=== PATIENT | male | born 1970 | race Caucasian/White ===

== ENCOUNTER → 2023-11-25 15:20 | Outpatient (REF) | payer BC, SELFPAY | LOC: HWRAD 15:20 | PROVIDERS: ATTENDING PHYSICIAN Nurse Practitioner Family | DX: I73.9 Peripheral vascular disease, unspecified (principal) | CPT/HCPCS: 72100 ==

== ENCOUNTER → 2024-03-02 10:25 | Outpatient (REF) | payer BC, SELFPAY | LOC: HWRAD 10:25 | PROVIDERS: ATTENDING PHYSICIAN Nuclear Medicine Nuclear Cardiology; FAMILY PHYSICIAN Nurse Practitioner Family | DX: Q23.1 Congenital insufficiency of aortic valve (principal); I77.810 Thoracic aortic ectasia | CPT/HCPCS: 71275; Q9967 ==

== ENCOUNTER → 2024-05-07 09:00 | Outpatient (REF) | payer BC, SELFPAY | LOC: HWRAD 09:00 | PROVIDERS: ATTENDING PHYSICIAN Surgery Vascular Surgery; FAMILY PHYSICIAN Nurse Practitioner Family | DX: I73.9 Peripheral vascular disease, unspecified (principal) | CPT/HCPCS: 75635; Q9967 ==

== ENCOUNTER → 2024-08-20 08:14 | Outpatient (REF) | payer BC, SELFPAY | LOC: HWRCS 08:14 | PROVIDERS: ATTENDING PHYSICIAN Nuclear Medicine Nuclear Cardiology; FAMILY PHYSICIAN Nurse Practitioner Family | DX: Q23.1 Congenital insufficiency of aortic valve (principal) | CPT/HCPCS: 93306 ==

== ENCOUNTER 2024-09-08 19:44 | Inpatient (IN) | payer BC, SELFPAY ==
[2024-09-08] VITALS (26 sets, daily range): BP systolic 83–177; BP diastolic 56–115; BMI 23.8
[2024-09-08 13:50] LABS: % Basophils 0.5 % (0-2); % Eosinophils 0.5 % (0-6); % Immature Granulocytes 0.3 % (0-0.5); % Lymphocytes 19.1 % (20.5-51.1); % Monocytes 8.4 % (1.7-9.3); % Neutrophils 71.2 % (42.2-75.2); Absolute Basophils 0.1 10^3/uL (0-0.2); Absolute Eosinophils 0.1 10^3/uL (0-0.7); Absolute Lymphocytes 2.1 10^3/uL (1.2-3.4); Absolute Monocytes 0.9 10^3/uL (0.1-0.6); Absolute Neutrophils 7.8 10^3/uL (1.4-6.5); Hematocrit 42.3 % (39.0-52.0); Hemoglobin 14.4 g/dL (13.0-18.0); Mean Corpuscular Hgb 29.3 pg (27.0-31.0); Mean Platelet Volume 8.5 fL (7.4-10.4); Nucleated Red Blood Cells % 0 % (-); Platelet Count 276 10^3/uL (130-400); Red Blood Cell Count 4.92 10^6/uL (4.70-6.10); Red Cell Dist. Width 12.4 % (11.5-14.5)
[2024-09-08 14:03] LABS: ALT (SGPT) 25 U/L (0-50); AST (SGOT) 21 U/L (17-59); Albumin 4.3 g/dl (3.5-5.0); Alkaline Phosphatase 57 U/L (38-126); Blood Urea Nitrogen 15 mg/dl (9-20); Carbon Dioxide 28 mmol/L (22-30); Chloride 101 mmol/L (98-107); Glucose 114 mg/dl (70-99); Potassium 4.1 mmol/L (3.5-5.1); Sodium 137 mmol/L (135-145); Total Bilirubin 0.6 mg/dl (0.2-1.3); Total Protein 6.7 g/dl (6.3-8.2); eGFR > 60.00
[2024-09-08 14:13] LABS: Troponin I 0.012 ng/ml
--- NOTE | 2024-09-08 15:06 | ED.GENMED ---
History of Present Illness
General
Chief Complaint: Chest Pain
Source: patient
Time Seen by Provider: 09/08/24 14:54
History of Present Illness
History of Present Illness:
This patient is a 53-year-old male presents emergency department with a gradual onset of jaw discomfort on the left side associated with feeling slightly diaphoretic, lightheaded, and a 'throbbing' across his inferior scapular area bilaterally.
This started around 9:30 PM while enjoying dessert and has been constant since then. It was a initially rated as a 7 out of 10 now 3 out of 10. He had difficulty sleeping due to the discomfort. He denies associated chest pain, vomiting, neck
pain, abdominal pain. He did have slight nausea initially but no longer. He does not feel dyspneic but he feels that the pain is worse when he takes a deep breath and holds it. Patient has a history of an aortic ascending aneurysm most recently
echocardiogram performed earlier this month and he was told he will need a CTA for further evaluation. He also has a history of a bicuspid aortic valve. No known history of CAD.
Past History
Past History
ED Past Medical History: Other (Bicuspid aortic valve, hypertension, hyperlipidemia, ascending aortic aneurysm, peripheral vascular disease)
Social History
Tobacco: Former smoker
Alcohol: None
Drug: None
Personal: Single
Living: alone
Phy Exam
Physical Exam
Physical Exam:
GENERAL: Alert , in no apparent distress
EYE: pupils equal and reactive
NECK: Supple, no significant adenopathy.
ENT: o/p clr, mmm.
CARDIAC: Regular rate and rhythm, soft systolic murmur noted.
LUNGS: Clear breath sounds bilaterally, no acute respiratory distress, no wheezes/rales/rhonchi
ABDOMEN: Soft, without focal tenderness, no r/g, no cvat
NEUROLOGICAL: Alert and oriented, no focal neuro deficits
SKIN: Warm and dry, skin intact.
MUSCULOSKELETAL: No edema, well perfused.
PSYCH: Normal and appropriate interaction.
Scores
Heart Score for Chest Pain Patients
STEMI patient?: Not applicable
Course
Orders/Labs/Results
Orders:
Orders
09/08/24 13:04
Electrocardiogram (*1) Urgent
Reason for Study: Chest Pain
09/08/24 13:19
EKG- Treatment ONCE
09/08/24 13:41
Complete Blood Count/With Diff Urgent
Comprehensive Metabolic Panel Urgent
Glycohemoglobin (HgbA1c) Urgent
Lhkeh-Zvea-Tghggnj Urgent
Troponin I Urgent
09/08/24 15:06
CT Chest Angio W/wo Iv Contras Urgent
Comment:
Reason For Exam: hx ascen aort aneurysm, now with back pain
09/08/24 17:52
Esmolol 2500 mg/250 ml [Brevibloc 2500 mg] 2,500 mg in 250 ml IV NOW
Initial dose in mcg/kg/min, then titrate:: 50
Titrate to keep:: HR 50 - 60 bpm
Titrate to keep other:: then SBP 90-110 mmHg
Titrate by mcg/kg/min:: 25-50 mcg/kg/min
Frequency of titrations (minutes):: 5 minutes
Maximum dose in mcg/kg/min:: 300
Begin to taper infusion when:: Do Not Taper
Additional Taper Instructions:: do not taper to off without separate provider order
Additional Instructions:: if HR at goal and SBP above goal at max dose of esmolol:
Additional Instructions:: initiate nicardipine, DO NOT STOP ESMOLOL INFUSION.
Additional Instructions:: Contact provider if: HR < 45 bpm or if HR > 70 bpm on max dose esmolol.
Esmolol [Brevibloc] 40 mg IV NOW STA
09/08/24 18:00
Nicardipine 40 mg/200 ml [Cardene] 40 mg in 200 ml IV PER PROTOCOL
Initial dose in mg/hr, then titrate:: 5
Titrate to keep:: Other
Titrate to keep other:: SBP 90-110 mmHg
Titrate by mg/hr:: 2.5 mg/hr
Frequency of titrations (minutes):: every 5-15 minutes
Maximum dose in mg/hr:: 15
Begin to taper infusion when:: Remained at goal for 2hrs
Taper by mg/hr:: 2.5 mg/hr
Frequency of taper (minutes) if patient maintains goal:: every 15-30 minutes
Taper to off?: Yes
If infusion off & no longer maintaining goal:: Contact Provider
09/08/24 18:01
Morphine Sulfate 4 mg IV NOW STA
09/08/24 18:20
Type+Screen Stat
09/08/24 18:21
* Blood Bank Products Routine
Blood Bank Products: *Packed RBC Leuko(PRBC's)
Quantity: 4
Transfuse Today: Hold for OR
Is product needed for scheduled surgery?: Yes
Expected Surgery Date: TODAY
Reason: Other
Other reason: cardiothoracic surgery
* Blood Bank Products Routine
Blood Bank Products: *Plt Single Donor Leuko
Quantity: 4
Transfuse Today: Hold for OR
Is product needed for scheduled surgery?: Yes
Expected Surgery Date: TODAY
Reason: Other
Other reason: Cardiothoracic surgery
Magnesium Oxide 500 mg PO ONCE ONE
Metoprolol [Lopressor] 25 mg PO ONCE ONE
Mupirocin [Bactroban 2% Ointment] See Dose Instructions NASAL ONCE ONE
Pantoprazole [Protonix] 40 mg PO ONCE ONE
Activity As Directed
Activity Level: As Tolerated
Blood Pressure Bilateral Upper Extremities As Directed
Instructions:: If not already done, obtain and record bilateral upper extremity BP
Notify physician/PA/REVIEW ASSISTANT:: notify cardiac surgery PA, REVIEW ASSISTANT, or MD of a 20 mmHg or greater difference
Blood Pressure LEFT Upper Extremity ONCE
Blood Pressure RIGHT Upper Extremity ONCE
Notify MD As Directed
Notify physician if: Contact physician if patient has received any of the following agents within the previous
5 days:
Warfarin (Coumadin) Clopidogrel (Plavix)
Dabigatran (Pradaxa) Ticagrelor (Brillinta)
Rivaroxiban (Xarelto) Prasugrel (Effient)
Apixaban (Eliquis) Cilostazol (Pletal)
Enoxaparin (Lovenox) Pentoxifylline (Trental)
Edoxaban (Savaysa) Dipyridamole/Aspirin (Aggrenox)
Notify MD As Directed
Notify physician if: patient received or is scheduled/ordered to receive within 24 hours prior to surgery any:
- angiotension converting enzyme ([place]) inhibitors
- angiotension receptor blockers (ARB)
including combination products containing one of these agents.
OR/Surgery Prep As Directed
Type of Prep: shower or bathe patient with 4% CHG night before surgery.
Comment: DOS: cleanse pt with 2% CHG wipes. Complete clip/prep for scheduled surgery
Patient Education As Directed
Type: [facility]
Comment: pre-operative teaching. Give patient/family [facility] education material
Patient scheduled for CT Surgery As Directed
Type of surgery: AVR and Aortic replacement
Date of scheduled surgery: 09/08/24
Discontinue Heparin drip if ordered: freight caller to OR
Weight As Directed
Frequency: Once
Comment: record patient's height and weight
09/08/24 18:22
Intraoperative SHAKIRA Routine
Reason for Exam: cardiac surgery
09/08/24 18:38
ABO2 Stat
BBK Wristband Number:
Associate notified that ABO2 has been ordered: [id number]
Date: 09/08/24
Time: 18:35
Housekeeper/Custodian/Laundry Worker ID: [id number]
09/08/24 18:39
CT Abd/pelvis Angio W/wo Iv Stat
Comment:
Reason For Exam: aortic dissection
09/08/24 18:41
Admit Patient As Directed
Co-Sign Provider:
Level of Care: Inpatient admission
Assign to:: CVICU
Physician / Group: [facility]
Diagnosis: aortic dissection
Reason for Hospitalization: type A aortic dissection
Expected length of stay greater than two midnights?: Yes
ELOS- Estimated Length of Stay in days: 7
I certify the patient meets the requirements for IP care: Yes
09/08/24 18:42
VTE Contraindication Routine
VTE Mechanical Device Contraindication: Surgical Contraindication
Pharmocologic Contraindication: Medical Contraindication
PRN Pain Medication Management As Directed
May give lesser potent ordered pain med per pt: Yes
preference::
Protocol:: Medication orders for pain may be administered in a
manner that supports deferring to patient preference
when the pt is:
- Requesting an ordered lesser potent pain medication.
Least to most potent pain medications are defined
as: acetaminophen < NSAID < tramadol < opioids
(morphine, oxycodone, hydromorphone).
- Requesting a lesser dose of the same medication IF
ORDERED.
- Requesting a less intrusive route of administration
if both routes are prescribed by the provider (PO <
IV).
09/08/24 19:12
Fentanyl Citrate/Pf [Sublimaze] 250 mcg .ROUTE .STK-MED ONE
Fentanyl Citrate/Pf [Sublimaze] 250 mcg .ROUTE .STK-MED ONE
Fentanyl Citrate/Pf [Sublimaze] 250 mcg .ROUTE .STK-MED ONE
Fentanyl Citrate/Pf [Sublimaze] 250 mcg .ROUTE .STK-MED ONE
Lidocaine 2% Mpf [Xylocaine Mpf 2%] 100 mg .ROUTE .STK-MED ONE
Midazolam HCl [Versed] 5 mg .ROUTE .STK-MED ONE
Propofol [Diprivan] 20 ml .ROUTE .STK-MED
Rocuronium [place] [Rocuronium] 100 mg .ROUTE .STK-MED ONE
09/08/24 19:13
Dexamethasone Sod Phosphate [Decadron] 20 mg .ROUTE .STK-MED ONE
Ketamine 5 ml .ROUTE .STK-MED
09/08/24 19:19
Admit/Transfer Patient As Directed
Co-Sign Provider:
Level of Care: Inpatient admission
Assign to:: CVICU
Physician / Group: [facility]
Diagnosis: Type A Dissection
Reason for Hospitalization: Type A Dissection
Expected length of stay greater than two midnights?: Yes
ELOS- Estimated Length of Stay in days: 5
I certify the patient meets the requirements for IP care: Yes
09/08/24 19:20
PRN Pain Medication Management As Directed
May give lesser potent ordered pain med per pt: Yes
preference::
Protocol:: Medication orders for pain may be administered in a
manner that supports deferring to patient preference
when the pt is:
- Requesting an ordered lesser potent pain medication.
Least to most potent pain medications are defined
as: acetaminophen < NSAID < tramadol < opioids
(morphine, oxycodone, hydromorphone).
- Requesting a lesser dose of the same medication IF
ORDERED.
- Requesting a less intrusive route of administration
if both routes are prescribed by the provider (PO <
IV).
09/08/24 19:22
Add On- LAB Stat
Tests Added?: hemoglobin A1c and hepatic panel
09/08/24 19:26
NORepinephrine 4 MG/250 ML [Levophed] 4 mg in 250 ml .ROUTE .STK-MED
09/08/24 19:27
Nitroglycerin [Tridil] 500 mcg .ROUTE .STK-MED ONE
09/08/24 19:28
Insulin Human Regular [Novolin R] 100 units .ROUTE .STK-MED ONE
09/08/24 20:00
CeFAZolin 2 GRAM [Ancef] 2 grams in 10 ml IV Q1H
09/09/24 00:09
0.9% Sodium Chloride 500 ml [Nss] 500 ml IV CORDIS
Acetaminophen [Tylenol/Feverall] 650 mg RECTAL Q4HPRN PRN
Acetaminophen [Tylenol] 1,000 mg PO TID@0600,1400,2200
Acetaminophen [Tylenol] 650 mg PO Q4HPRN PRN
Albuterol Nebs [Ventolin Nebules] 2.5 mg INH R Q4HPRN PRN
Albuterol [ProAIR HFA INHALER] 2 puff INH R Q4HPRN PRN
Amiodarone [Pacerone] 200 mg PO TID
Bisacodyl [Dulcolax] 10 mg RECTAL DAILYPRN PRN
Calcium CHLORIDE [Calcium Chloride 10% Syringe] 1,000 mg 0.9% Sodium Chloride 50 ml [Nss] 40 ml Syringe [Syringe-Pump] 0 ml IV PRN
Cyclobenzaprine HCl [Flexeril] 5 mg PO Q8HPRN PRN
DOBUTamine 500 MG/D5W 250 ML [Dobutrex 500 mg] 500 mg in 250 ml IV PER PROTOCOL
Initial dose in mcg/kg/min, then titrate:: 2.5
Currently infusing. Continue current dose and titrate:: Yes
Titrate to keep:: Other
Titrate to keep other:: cardiac index >/= 2.0
Titrate by mcg/kg/min:: 0.5 - 1 mcg/kg/minute
Frequency of titrations (minutes):: 15
Additional Titration Instructions:: continue current dose or initiate at 2.5 mcg/kg/minute
Maximum dose in mcg/kg/min:: 20
Begin to taper infusion when:: Remained at goal for 4hrs
Taper by mcg/kg/min:: 1 mcg/kg/minute
Frequency of taper (minutes) if patient maintains goal:: 30
Taper to off?: Yes
Dexmedetomidine 400 Mcg/100 ml [Precedex] 400 mcg in 100 ml IV PER PROTOCOL
Indication:: CT Surgery Postop
Goal:: RASS 0 to -2
Maximum dose in mcg/kg/hr:: 1.5
Continue currently infusing dose and titrate:: Yes
Titration Instructions:: Titrate by 0.1-0.2 mcg/kg/hr every 30 minutes to keep RASS 0 to -2.
Taper Instructions:: Begin taper if RASS < 0. Taper by 0.1-0.2 mcg/kg/hr every 30 minutes.
Taper Instructions:: May turn off when dose is </= 0.5 mcg/kg/hr.
Dextrose 50%-Water [Dextrose 50% Syringe] 12.5 grams IV [id number] PRN
Docusate W/Senna [Senokot-S] 1 tablet PO Q12
Gabapentin [Neurontin] 100 mg PO TID
HYDROmorphone [Dilaudid] 0.25 mg IV Q3HPRN PRN
HYDROmorphone [Dilaudid] 0.5 mg IV Q3HPRN PRN
KCl 20 Meq/50 ml [KCl] 20 meq in 50 ml IV PRN
Lactated Ringers [Lr] 250 ml IV [id number] PRN
Magnesium Hydroxide [Milk of Magnesia] 30 ml PO BIDPRN PRN
Magnesium Sulfate 2 Gram/50 ml [Magnesium Sulfate] 2 gram in 50 ml IV PRN
Mupirocin [Bactroban 2% Ointment] See Dose Instructions NASAL Q12
NORepinephrine 4 MG/250 ML [Levophed] 4 mg in 250 ml IV PER PROTOCOL
Initial dose in mcg/min, then titrate:: 2
Currently infusing. Continue current dose and titrate:: Yes
Titrate to keep:: Other
Titrate to keep other:: MAP greater than 65 mmHg
Titrate by mcg/min:: 1-2 mcg/min
Frequency of titrations (minutes):: 5
Additional Titration Instructions:: continue current dose or initiate at 2 mcg/min
Maximum dose in ICU in mcg/min:: 30
Maximum dose in IMU in mcg/min:: 8
Maximum dose in IVU in mcg/min:: 4
Begin to taper infusion when:: Remained at goal for 4hrs
Taper by mcg/min:: 1-2 mcg/min
Frequency of taper (minutes) if patient maintains goal:: 30
Taper to off?: Yes
Nicardipine 40 mg/200 ml [Cardene] 40 mg in 200 ml IV PER PROTOCOL
Initial dose in mg/hr, then titrate:: 2.5
Currently infusing. Continue current dose and titrate:: Yes
Titrate to keep:: Other
Titrate to keep other:: MAP 70-90 mmHg
Titrate by mg/hr:: 2.5 mg/hr
Frequency of titrations (minutes):: 5-15 minutes
Additional Titration Instructions:: continue current dose or initiate at 2.5 mg/hr
Maximum dose in mg/hr:: 15
Begin to taper infusion when:: Remained at goal for 2hrs
Taper by mg/hr:: 2.5 mg/hr
Frequency of taper (minutes) if patient maintains goal:: 15-30 minutes
Taper to off?: Yes
Ondansetron Injectable [Zofran] 4 mg IV Q8HPRN PRN
Oxycodone [Roxicodone] 2.5 mg PO Q4HPRN PRN
Oxycodone [Roxicodone] 5 mg PO Q4HPRN PRN
Pharmacy Request to Place See Dose Instructions PO ONCE ONE
Reg Insulin 100 Units/100 ml [Novolin R Insulin Infusion] 100 units in 100 ml IV PER PROTOCOL
09/09/24 00:09
Electrocardiogram (*1) Urgent
Reason for Study: Other
Other Reason for Exam: Post OP CardioThoracic surgery
Comment: 1 hour Post Op
CARDIOLOGY CONSULT Urgent
Consulting Provider: Vincenzo Charles
Was physician already notified: Yes
Reason for consult: postop Ct surgery
Vamp Maker Consult Urgent
Consulting Provider: Govind Barnes
Was physician already notified: Yes
Reason for consult: postop Ct surgery
Activity As Directed
Activity Level: Bedrest
Comment: bedrest postop, advance as tolerated
Advance Diet as Tolerated As Directed
Goal Diet: Cholesterol Lowering
Comment: NPO 4hrs post extubation. 1st meal only diet jello, diet kathrin acacia, broth
Iris Hugger As Directed
Patient's goal temperature:: 98 F
Additional Instructions:: Temperature and skin assessment per unit protocol
CVICU Nursing Chest PT As Directed
Frequency: q4 hours while awake
Number of Days: 2
Comment: Post Extubation x 48 hr, then prn if patient is unable to clear secretions
Chest Tube As Directed
Location: Pleural
To suction: Yes
Suction to __ centimeters of water: -20
May ambulate with suction off?: Yes
Chest Tube As Directed
Location: mediastinal
To suction: Yes
Suction to __ centimeters of water: -20
May ambulate with suction off?: Yes
Cordis Introducer Sheath As Directed
ECG as needed As Directed
ECG as needed for:: Rhythm Change
Epicardial Pacemaker As Directed
Mode:: Ventricular Demand
Rate (bpm):: 50
Output/Stimulation Threshold:: set output to 2 to 3 times stimulation threshold
Comment:: Refer to guidelines. Epicardial Wires Care per guidelines.
INT (Intravenous Needle Therapy) As Directed
Comment: POD#1 must maintain one peripheral IV access
Intake/ Output As Directed
Frequency: Per unit guidelines
Call for Urine Output less than: 0.5 mL /kg/hour
Notify MD As Directed
Notify physician if: -For temperatures greater than 102�F, more than 48 hours post-op.
-Systolic Arterial Pressure (SBP) less than 90 or greater than 130.
-If pH is less than 7.35 L or greater than 7.[address] Non Medication Order As Directed
Physician Order: H&H and Platelet Count 4 hours post op
Above order entered?: Yes
Nursing to Place Non Medication Order As Directed
Physician Order: stat ABG and continuous pulse ox if signs and symptoms of insufficiency and pulse ox less
than 90% post extubation
Above order entered?: Yes
Pneumatic Compression Sleeves As Directed
Type: Knee high
Suction Patient As Directed
Route of Suctioning: Nasotracheal Tube
Comment: nasotracheal suction PRN not coughing well after IS and chest PT
Vital Signs As Directed
Frequency: Per unit guidelines
Call for:: temp > 102 F; if greater than 48 hours post op
Additional Instructions:: temp less than or equal to 102 F; less than 48 hours post-op - no cultures
Weight As Directed
Frequency: Daily
Type of Scale: Standing Scale
Wound Care As Directed
Location of Wound: sternum
Treatment of Wound: -If Dermabond used, leave incision open to air
CR Chest Portable - 1 View Urgent
Comment:
Reason For Exam: post-op cardiothoracic surgery
Reason Study Needs to be Portable: Patient Unstable
Extubate Patient [RCUNC] Routine
Special Instructions: - Place patient on continuous positive air pressure (CPAP) with PS 5, when patient
exhibits signs of assisting ventilator. Proceed per guidelines.
- Extubate patient from CPAP if partial pressure of oxygen (PO2) greater than 80mmHg,
partial pressure of carbon dioxide (PCO2) less than 45mmHg, respiratory rate less than
25, heart rate less than 110, potential of hydrogen (pH) 7.35-7.45, oxygen saturation
greater than or equal to 92% and hemodynamically stable unless otherwise indicated by
provider.
O2 Therapy [RESP] Routine
Titrate/Wean O2 to maintain O2 sat greater than (%): 90
Special Instructions: - place on humidified nasal cannula 6 liters/min after extubation.
- place on 50% face tent in addition to nasal cannula if needed to keep Pulse Ox greater
than or equal to 90%.
- wean nasal cannula by 2 liters/min every 2 hours until on room air.
- maintain Pulse Ox greater than 90%.
Pulse Ox/cont/shift [RESP] Urgent
Quantity: 1
Special Instructions: Obtain pulse oximetry for signs and symptoms of insufficiency. If less than 90% notify
provider.
Rx Incentive Spirometry [RESP] Routine
Frequency: q1h while awake
Comment: every 1 to 2 hours while awake
Ventilator Initial Settings [RESP] Urgent
FIO2: 60
PEEP: 5
Pressure Support: 5
Comment: tidal volume 10 mL/kg, rate 8-10, see special instructions below
Special Instructions: - Wean FiO2 to 40% to maintain pulse ox >/ =90%
- ABG Urgent 30 minutes after each ventilator change (excluding fractional concentration
inspired oxygen (FiO2) changes)
DX Deep Vein Thrombosis Video Routine
09/09/24 00:54
Arterial Blood Gas, Lytes, iCa Urgent
%Oxygen/Room Air: vent
Comment: draw 1 hour post op
Blood Urea Nitrogen Urgent
Comment: draw 1 hour post op
Creatinine Urgent
Comment: draw 1 hour post op
Glucose Urgent
Comment: draw 1 hour post op
H&H Urgent
Comment: draw 1 hour post op
Magnesium Urgent
Comment: draw 1 hour post op
Mixed Venous O2 Saturation Urgent
%Oxygen/Room Air: vent
Comment: draw 1 hour post op
PTT Urgent
Platelet Count Urgent
Comment: draw 1 hour post op
Prothrombin Time Urgent
Comment: draw 1 hour post op
09/09/24 01:26
Aspirin 300 mg RECTAL ONCE ONE
09/09/24 02:03
Aspirin Chewable [Low Strength Aspirin] 81 mg PO ONCE ONE
09/09/24 05:00
Electrocardiogram (*1) Urgent
Reason for Study: Other
Other Reason for Exam: Post OP CardioThoracic surgery
Comment: Post-Op Day 1
09/09/24 05:53
Basic Metabolic Panel IN AM
Complete Blood Count/No Diff IN AM
Magnesium IN AM
09/09/24 06:00
CARDIAC REHAB CONSULT Routine
Co-Sign Provider:
Type of Cardiac Rehab Referral: Both IP & OP
Diagnosis: AVR w/ zooplastic tissue
Date of Diagnosis/Surgery: 09/08
Referring Provider: Bubba Davenport
Comment: Transfer OOB to chair on first day post-op, if vital signs
Comment: w/in parameters & pt not receiving vasopressin or epinepherine
Activity As Directed
Activity Level: Out of Bed- Chair
With Assistance
As Tolerated
Out of Bed-Early Mobility
Comment: POD #1 OOB to chair if VS w/in parameters & not on vasopressin or epi
CR Chest Portable - 1 View IN AM@0600
Comment:
Reason For Exam: post-op cardiothoracic surgery
Reason Study Needs to be Portable: Patient Unstable
09/09/24 07:30
Insulin Aspart Pen [Novolog Flexpen] See Protocol SC AC
09/09/24 08:00
Aspirin 300 mg RECTAL DAILYPRN PRN
Aspirin Chewable [Low Strength Aspirin] 81 mg PO DAILY
CeFAZolin 1 GRAM [Ancef] 1 gram in 5 ml IV Q8H
Lidocaine [Lidocaine 4% Patch] 1 patch TOPICAL DAILY
Apply Lidocaine patch(s) to:: back
Magnesium Oxide 500 mg PO BID
Metoprolol [Lopressor] 12.5 mg PO Q12
Pantoprazole [Protonix] 40 mg PO DAILY
Rosuvastatin Calcium [Crestor] 10 mg PO DAILY
09/09/24 14:00
Ferric Gluconate [Ferrlecit] 125 mg 0.9% Sodium Chloride 100 ml [Nss] 100 ml IV DAILY@1400
09/09/24 20:00
Remove Patch [Remove Lidocaine Patch] 1 patch REMOVE DAILY@2000
09/10/24 03:39
Basic Metabolic Panel IN AM
Complete Blood Count/No Diff IN AM
Magnesium IN AM
09/10/24 06:00
CR Chest Portable - 1 View IN AM@0600
Comment:
Reason For Exam: post-op cardiothoracic surgery
Reason Study Needs to be Portable: Patient Unstable
09/11/24 06:00
Basic Metabolic Panel IN AM
Complete Blood Count/No Diff IN AM
Magnesium IN AM
CR Chest Portable - 1 View IN AM@0600
Comment:
Reason For Exam: post-op cardiothoracic surgery
Reason Study Needs to be Portable: Patient Unstable
09/12/24 06:00
Basic Metabolic Panel IN AM
Complete Blood Count/No Diff IN AM
Magnesium IN AM
CR Chest - 2 Views Routine
Comment: in am POD#4
Reason For Exam: post-op cardiothoracic surgery
Abnormal Lab Results
09/08/24 09/08/24
13:41 18:20
WBC 11.0 H 10^3/uL
(4.8-10.8)
Absolute Neuts (auto) 7.8 H 10^3/uL
(1.4-6.5)
Absolute Monos (auto) 0.9 H 10^3/uL
(0.1-0.6)
Lymphocytes % 19.1 L %
(20.5-51.1)
Glucose 114 H mg/dl
(70-99)
Hemoglobin A1c 6.1 H %
(4.0-5.6)
Crossmatch IS Only See Detail
09/08/24 13:41
09/08/24 13:41
Vital Signs
Initial and Last Documented VS:
Initial Vital Signs
Temp Pulse Resp BP Pulse Ox
98.2 F 78 16 140/86 99
09/08/24 13:29 09/08/24 13:29 09/08/24 13:29 09/08/24 13:29 09/08/24 13:29
Last Documented Vital Signs
Temp Pulse Resp BP Pulse Ox
98.7 F 82 16 101/66 90
09/10/24 07:55 09/10/24 08:08 09/10/24 07:55 09/10/24 08:08 09/10/24 07:55
*Critical Care Note
Total Time (30-74mins, 75-104mins- exclusive of procedures): 45
Update Note
Update Note:
Patient presents to the Emergency Department with ___back pain, lightheadedness
Number and Complexity of Problems Addressed at the Encounter
� Chronic conditions affecting care:
� Acute Exacerbation and/or Progression of Chronic Illness:
� Differential Diagnosis includes: but not limited to acs, msk pain, dissection, etc etc
Amount and/or Complexity of Data to be Reviewed and Analyzed
� I performed an independent evaluation of and my interpretation is:
EKG:
CT:Report via [facility] text from Dr. Mcleod CTA consistent with type a aortic dissection. Nurse immediately notified, esmolol drip ordered, will contact CT surgery now 1.Ascending aortic aneurysm measuring 5.4 cm, previously 5.2
cm, with a new [place] type a dissection of the ascending thoracic aorta measuring 4.3 cm in length with associated periaortic stranding. This does not extend into the aortic root.
2. No other significant abnormality identified in the chest.
Xrays:
Laboratory Studies:first troponin wnl
Other:
� Review of other/old records reveals: echo 08/20 aneurysm measures 4.8-5.5 cm
� Clinical information was obtained by an independent historian:bedside friend
� Prescriptions/Medications Considered but not given:
� Further testing considered but not performed:
Risk of Complications and/or Morbidity or Mortality of Patient Management
� Social determinants of health affecting care:
� Discussion with other providers (PCP, Hospitalists, Consultants, etc):
� Escalation of care including admission/observation vs risk of discharge considered:As soon as tt recieved, pt started on esmolol gtt, updated on diagnosis and plan. Call/text to Dr Davenport, who will be in to see pt now. Bp
coming down, sbp now 130's, will continue to titrate up gtt.
Communication with open hearth laborer, she is ordering stat cta a/p. Other orders placed. Sbp gradually lowering, rn instructed to increase gtt.
ED Attending Note
-
Portions of this chart may have been created with voice recognition software.� Occasional wrong word or��sound alike� substitutions may have occurred due to the inherent limitations of voice recognition software.
Discharge Plan
Departure
Patient Disposition: OR
Date of Disposition: 09/08/24
Time of Disposition: 18:45
Admit to doctor: shila
Presentation/result/management discussed w/ accepting MD/DO: shila
Condition: Critical
Discharge Problem:
Aortic aneurysm with dissection
Interventions
Interventions:
*Risk Screen - Suicide Last Done: 09/08/24 14:37
*General Assessment Last Done: 09/08/24 14:55
*Neglect/Abuse Screening Last Done: 09/08/24 14:37
ED- Fall Risk Assessment Last Done: 09/08/24 19:52
*ED COVID-19 Vaccine History Last Done: 09/08/24 14:37
*Nursing Disposition Last Done: 09/08/24 19:52
ED- Cardiac Assessment Last Done: 09/08/24 14:55
ED-Peripheral Vascular Assessment Last Done: 09/08/24 14:37
ED-Skin Assessment Last Done: 09/08/24 14:37
Discharge Date and Time
Discharge Date/Time: 09/08/24 19:53
[2024-09-08] MEDS: MORPHINE SULFATE 4 MG IV (18:07)
[2024-09-08] MEDS: BREVIBLOC 40 MG IV (18:07)
[2024-09-08] MEDS: BREVIBLOC 2500 MG 250 IV (18:10)
[2024-09-08] MEDS: CARDENE 200 IV (18:41)
--- NOTE | 2024-09-08 19:15 | W.PN.UPDATE ---
Update Note
Progress Note Update
Called by Dr. Kirkland to ED for Mr. Jacinto for sudden chest pain while eating dinner. Known ascending aortic aneurysm of 5.5cm with bicuspid aortic valve morphology. On my personal review of his CTA Chest, he has a focal dissection along the greater
curve at the STJ extending distally and proximally, does not appear to be involving the root, no extension into the arch or desc thoracic aorta. The midascending on my measurement is 5.7cm at it's maximal dimension, the distal ascending necks down
to 3.6cm and appears normal in architecture. He has a normal arch and head vessel branching. His TTE from 08/20 demonstrates a bicuspid aortic valve, normal function, and at least moderate eccentric AI. No cath in our system, minimal calcification
on CT. We discussed his pathology and natural history of a Type A dissection. We reviewed the risks and benefits of surgery, and understands and is willing to proceed. Plan will be Emergent Type A repair, aortic root replacement with coronary
reimplantation, and likely ascending aortic replacement. Given the normal size of his distal ascending and arch, I do not believe we will need to perform circulatory arrest if I can clamp high enough. With his bicuspid valve with moderate AI, I will
have a low threshold to replace the valve. We discussed both biological and mechanical valves and he is leaning toward the biological prosthesis. Full consultation note to follow. Consent obtained and signed. Denies family history, tells me he
typically has good blood pressure control and heart rates in the 60s.
--- NOTE | 2024-09-08 19:33 | HPS.HSE ---
Family Physician
-
Family Physician: LEONARDA Bennett
Chief Complaint
-
Type A Aortic Dissection
History of Present Illness
53 y/o male with PMHx of HTN, HLD, a known Ao Aneurysm and Bicuspid aortic valve followed by Dr. Collins presents to [facility] with complaints of sudden dull achy chest pain while eating dinner. He then presented to where a CTA of the
chest was performed and he was found to have a focal dissection along the greater curve at the STJ extending distally and proximally, does not appear to be involving the root, no extension into the arch or desc thoracic aorta. Dr. Davenport reviewed the
images personally and it was decided that the patient will go to the OR emergently for a Type A Aortic repair. Consent was obtained and pre-operative orders were placed.
Medical History
Past Medical History
Past Medical History: Reports HTN, Hypercholesterolemia, NIDDM, Valvular Disease (Bicuspid Valve) and Other
Additional Past Medical History:
GI polyps
Pulmonary nodules
Diverticulosis
Hemorrhoids
Incomplete RBBB
alcoholism (drank 1.75 ETOH every 2.5 days for almost 10 years, stopped 'cold turkey' approximately 2014
Degenerative disc disease-cortisone injection
Migraines
Past Surgical History: Reports Other
Additional Past Surgical History:
B/L inguinal Hernia repairs in 2021
Social History
Tobacco: Former Smoker (quit 5-10 years ago))
Alcohol: Occasional
Drug: None
Personal: Single
Living: Alone
Employment: Employed
Family History
Family History: Unable to Obtain
Allergies / Home Medications
Allergies reflects when Allergies were last updated in [employer].
Home Medications with original date entered in [employer]
Allergy/Medication List:
Home Medications
�Medication �Instructions �Recorded
amlodipine 5 mg tablet 5 mg PO DAILY 05/31/22
aspirin 81 mg tablet,delayed 81 mg PO DAILY 09/08/24
release
aspirin 81 mg tablet,delayed 162 mg PO DAILYPRN PRN chest pain 09/08/24
release
coenzyme Q10 100 mg capsule 100 mg PO DAILY 09/08/24
(CoQ-10)
rosuvastatin 10 mg tablet 10 mg PO DAILY 09/08/24
Allergies
Allergy/AdvReac Type Severity Reaction Status Date / Time
lisinopril Allergy cough Verified 09/08/24 19:46
Review of Systems
-
History Source: Patient
A 12 point ROS was completed and negative except as noted: Yes
Cardiac: Reports Chest Pain
Physical Exam
Vital Signs
Vital Signs
Temp Pulse Resp BP Pulse Ox
98.2 F 66 0 95/66 100
09/08/24 13:29 09/08/24 19:15 09/08/24 19:15 09/08/24 19:05 09/08/24 19:05
Physical Exam
General: Well Developed and Well Nourished
HEENT: NormoCephalic
Respiratory: Clear
Cardiac: S1/S2 and Murmur
Breast: Deferred by me
GI: Soft and Non Tender
Rectal: Deferred by Provider
Genito-urinary: Deferred by me
Musculoskeletal: No Cyanosis and No Edema
Skin: Warm and Dry
Neuro: AO x 3
Hematologic/Lymphatic: No Lymphadenopathy
Psych: Calm and Intact Judgment/Insight
Laboratory Results
-
09/08/24 13:41
09/08/24 13:41
Laboratory Results
Total Bilirubin 0.6 mg/dl (0.2-1.3) 09/08/24 13:41
AST 21 U/L (17-59) 09/08/24 13:41
ALT 25 U/L (0-50) 09/08/24 13:41
Alkaline Phosphatase 57 U/L (38-126) 09/08/24 13:41
Troponin I 0.012 ng/ml 09/08/24 13:41
Troponin I Cancelled 09/08/24 13:41
Data Reviewed
-
Critical Care Time (in minutes): 40
Impression/Plan
-
IMPRESSION:
53 y/o male with pmhx listed above presents to with chest pain and found to have a Type A Aortic dissection. He was taken emergently to the CVOR with Dr. Davenport for repair.
PLAN:
#Type A Aortic dissection
- stat type and screen and stat CTA of A/P
- Pre and post operative orders placed
- will be admitted to the CVICU post-operatively
- Will consult cardiology
#HLD
- resume statin when appropriate
#HTN
- Will resume antihypertensives when appropriate
[2024-09-08 19:54] LABS: Direct Bilirubin 0.1 mg/dl (0.0-0.4)
[2024-09-08 20:50] LABS: ACT+ - POC 112 Seconds (82-134)
[2024-09-08 21:08] LABS: Urine Albumin Negative (Neg - Trace); Urine Bilirubin Negative (Negative); Urine Character Clear (Clear); Urine Color Yellow; Urine Glucose Negative (Negative); Urine Ketone Negative (Negative); Urine Leukocyte Trace (Negative); Urine Nitrite Negative (Negative); Urine Occult Blood Negative (Negative); Urine Specific Gravity 1.005 (<1.030); Urine Urobilinogen Negative (Neg - 1+)
[2024-09-08 21:22] LABS: ACT+ - POC 617 Seconds (82-134)
[2024-09-08 21:29] LABS: Urine Bacteria Few (Negative); Urine Red Blood Cell 0-2 /HPF (0-2); Urine Squamous Cell 0-2 /LPF (Few); Urine White Cell 0-2 /HPF (0-5)
[2024-09-08 21:50] LABS: B.E. - POC -0.6 mmol/L; Glucose - POC 110 mg/dl (70-99); HCO3 - POC 24 mmol/L (21-28); Hematocrit - POC 36 % PCV (42-52); Hemodilution- POC No; Hemoglobin Calculated - POC 12.3; Ionized Calcium - POC 1.15 mmol/L (1.15-1.33); O2 Saturation %Calculated-POC 99.8 % (94-98); PCO2 - POC 39 mmHg (35-48); PO2 - POC 244 mmHg (83-108); POC Comment PRE; Potassium - POC 3.9 mmol/L (3.5-5.1); Sodium - POC 139 mmol/L (136-145); Specimen Type - POC Arterial
[2024-09-08 22:03] LABS: ACT+ - POC 587 Seconds (82-134)
[2024-09-08 22:26] LABS: B.E. - POC -0.1 mmol/L; Glucose - POC 124 mg/dl (70-99); HCO3 - POC 24 mmol/L (21-28); Hematocrit - POC 31 % PCV (42-52); Hemodilution- POC Yes; Hemoglobin Calculated - POC 10.5; Ionized Calcium - POC 0.98 mmol/L (1.15-1.33); O2 Saturation %Calculated-POC 99.9 % (94-98); PCO2 - POC 37 mmHg (35-48); PO2 - POC 336 mmHg (83-108); POC Comment CPB; Potassium - POC 5.1 mmol/L (3.5-5.1); Sodium - POC 136 mmol/L (136-145); Specimen Type - POC Arterial; pH - POC 7.42 (7.35-7.45)
[2024-09-08 22:41] LABS: ACT+ - POC 714 Seconds (82-134)
[2024-09-08 23:02] LABS: B.E. - POC -1.2 mmol/L; Glucose - POC 178 mg/dl (70-99); HCO3 - POC 23 mmol/L (21-28); Hematocrit - POC 40 % PCV (42-52); Hemodilution- POC Yes; Hemoglobin Calculated - POC 13.6; Ionized Calcium - POC 1.05 mmol/L (1.15-1.33); O2 Saturation %Calculated-POC 99.8 % (94-98); PCO2 - POC 37 mmHg (35-48); PO2 - POC 226 mmHg (83-108); POC Comment CPB; Potassium - POC 4.6 mmol/L (3.5-5.1); Sodium - POC 137 mmol/L (136-145); Specimen Type - POC Arterial
[2024-09-08 23:16] LABS: ACT+ - POC 717 Seconds (82-134)
[2024-09-08 23:35] LABS: B.E. - POC -3.6 mmol/L; Glucose - POC 198 mg/dl (70-99); HCO3 - POC 22 mmol/L (21-28); Hematocrit - POC 39 % PCV (42-52); Hemodilution- POC Yes; Hemoglobin Calculated - POC 13.2; Ionized Calcium - POC 1.09 mmol/L (1.15-1.33); O2 Saturation %Calculated-POC 99.9 % (94-98); PCO2 - POC 40 mmHg (35-48); PO2 - POC 293 mmHg (83-108); POC Comment CPB; Potassium - POC 3.9 mmol/L (3.5-5.1); Sodium - POC 137 mmol/L (136-145); Specimen Type - POC Arterial; pH - POC 7.35 (7.35-7.45)
[2024-09-08 23:52] LABS: ACT+ - POC 120 Seconds (82-134)
[2024-09-08 23:54] LABS: B.E. - POC 0.4 mmol/L; Glucose - POC 158 mg/dl (70-99); HCO3 - POC 26 mmol/L (21-28); Hematocrit - POC 34 % PCV (42-52); Hemodilution- POC Yes; Hemoglobin Calculated - POC 11.6; Ionized Calcium - POC 1.37 mmol/L (1.15-1.33); O2 Saturation %Calculated-POC 99.8 % (94-98); PCO2 - POC 45 mmHg (35-48); PO2 - POC 227 mmHg (83-108); POC Comment POST; Potassium - POC 3.1 mmol/L (3.5-5.1); Sodium - POC 142 mmol/L (136-145); Specimen Type - POC Arterial; pH - POC 7.37 (7.35-7.45)
[2024-09-09] VITALS (24 sets, daily range): BP systolic 81–135; BP diastolic 57–73; BMI 24.0
--- NOTE | 2024-09-09 00:29 | W.PN.CT.SURG ---
CT Surgery Operative Note
-
CARDIAC SURGERY OPERATIVE REPORT
Preoperative Diagnosis: Acute type A Dissection
Postoperative Diagnosis: Same, with severe aortic valve insufficiency and bicuspid valve morphology
Procedure(s) Performed:
1. Standard sternotomy with mid arch cannulation using Seldinger technique and right atrial cannulation
2. Aortic root replacement�biological Bentall [27 mm valved conduit]
3. Reimplantation of left and right coronary ostia
4. Left atrial appendage exclusion [35 mm clip]
5. Ascending aortic replacement to the level of the proximal arch where the caliber normalized
6. Transesophageal echocardiography
7. Placement of temporary atrial ventricular pacing wires
Date of Surgery: 09/09/2024
Comorbidities:
1. Known bicuspid aortic valve morphology, type 0, with severe aortic valve insufficiency secondary to leaflet prolapse
2. Ascending aortic aneurysm measuring 5.7 cm
3. 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
4. Acute Norbert type a aortic dissection
5. Hypertension
6. Hyperlipidemia
7. Peripheral vascular disease
8. Prediabetic
Attending Surgeon: Bubba Davenport MD, MS
Assistants: Dayanara Vazquez PA-C (present and necessary to miller first, retraction, suction, exposure, suture management, and wound closure under my direction)
Anesthesiology: Terrell Franklin MD
Scrub and Circulating RNs: Janet Navas RN, Miki Huston RN
Business Affairs Manager: Marina Sanchez CCP
Anesthesia: GETA
EBL: per perfusion records
Products: 2 plts
CPB Time: 126 minutes
Aortic Cross Clamp Time: 105 minutes
Indication(s) for Procedures: This is a 53-year-old male who had sudden acute onset of chest pain while eating dinner last night. Presented to the ED underwent a CTA of the chest finding and aortic root dissection with concomitant aortic root and
ascending aortic aneurysm. He also has known bicuspid valve morphology. Given that he has an acute type a dissection, he is brought emergently to the operating room for surgical intervention.
Aortic Valve Description: Type 0 bicuspid aortic valve, fenestrations at the commissures, prolapse of the leaflets resulting in eccentric jet directed towards the anterior leaflet the mitral valve
Findings: His left ventricular ejection fraction preoperatively was 65% with no regional wall motion abnormalities following surgery he was hyperdynamic with an EF of approximately 65 to 70% with no new regional wall motion abnormalities. Of note
he had severe aortic valve insufficiency on preoperative SHAKIRA with an eccentric jet that was directed towards the anterior leaflet the mitral valve. He had a type 0 bicuspid aortic valve morphology with fenestrations along his aortic valve. He also
had a concomitant root aneurysm measuring 4.7 cm and a mid ascending aortic measurement at maximal diameter of 5.7 cm there was a noticeable tear at the greater curvature of the proximal ascending aorta. Upon entry into his pericardium there is
evidence of hemopericardium and bruising of his ascending aorta as well as the surrounding structures. Because his aorta transition to a normal caliber with normal-appearing tissue at the distal segment of his aorta/proximal arch I was able to
clamp high enough at the base of the innominate artery that I did not feel circulatory arrest was necessary. He underwent a biological Bentall with a valved conduit with the placement of 15 pledgeted 2 Ethibond sutures from LVOT through annulus
through sewing cuff of the conduit. These were secured with core knots. Both left and right coronary ostia were mobilized into buttons which were then sewn back onto the neosinuses with 5-0 Prolene. Bovine pericardium was used as a gasket around
the coronary buttons. The ascending aortic tissue was then resected until there was a normal caliber and normal tissue quality. The straight tube portion of the valved conduit graft was then beveled accordingly and the distal anastomotic suture
line was created with 4-0 Prolene in a running fashion using bovine pericardium as a gasket on the [place] aortic tissue. His left atrial appendage was also verified to be free of any thrombus or debris preoperatively, given the extent of the
surgery and his risk for atrial fibrillation requiring anticoagulation, his left atrial appendage was also excluded with a 35 mm clip. This was verified to be totally occlusive at the conclusion of the case. The ligament Km was divided.
Coming off cardiopulmonary bypass he had 2 fibrillatory events that required defibrillation likely from air entrainment into the right coronary ostia. Following defibrillation he maintained sinus rhythm with isoelectric ST segments. He did not
require any inotropic support and was hyperdynamic coming off of cardiopulmonary bypass, cardiac index was 2.7. He was given 2 packs of platelets. Did not require any pacing and was sinus rhythm in the 60s. There was no aortic valve insufficiency
and the mean gradient across the new biological valve was 8 mmHg while he was hyperdynamic.
Specimen(s): Ascending and aortic root aortic tissue and aortic valve leaflets.
Prosthesis:
1. 35 mm left atrial appendage clip, serial #[id number]
2. Bovine pericardium
3. 27 mm [place] KONECT Resilia valved conduit, serial #[id number]
Description of Procedure: The patient was taken to the operating room. Their identity and procedure to be performed were verified and they were positioned supine on the operating table. Induction via general anesthesia with endotracheal intubation
was performed and central venous access and arterial monitoring were inserted. A preoperative transesophageal echocardiogram was performed to assess cardiac function and valvular function. The patient was then prepped and draped from chin to feet in
a sterile fashion. A preoperative time-out was performed with all members of the team present. A midline chest incision was performed along with median sternotomy. The innominate vein was isolated and encircled with a vessel loop. Next the
innominate artery was encircled and double looped fashion using a vessel loop followed by the left common carotid. The pericardium was then opened which revealed obvious hemopericardium. Full heparinization was given (a total of 40,000 units). We
created a pericardial well. The pericardial reflection on the ascending aorta was then taken down using gentle pressure pulling the aorta downward towards the patient's feet, additional dissection towards the mid and distal arch was performed. The
aortic cannulation site was chosen where it was soft, pliable, and free of calcium at the mid arch parallel to the left common carotid. Cannulation was performed with an EOPA cannula under Seldinger technique and SHAKIRA guidance with verification of
the wire in the distal descending thoracic aorta. The tract was serially dilated up to 18 Serbian followed by placement of a 20 Serbian cannula approximately 5 cm deep into the descending thoracic aorta. And a triple-stage venous cannula through the
right atrial appendage. The arterial cannula line had an appropriate bounce and correlating pressures with test dosing. The pulmonary artery was away from the aorta to facilitate a clamp site and aortotomy. The distal ascending
aorta/proximal arch was then circumferentially dissected divide the ligament posteriorly and freeing the RPA off of the posterior aorta. A retrograde coronary sinus catheter was placed for the RA with SHAKIRA and manual guidance. The ACT was confirmed
to be over 400 and retrograde autologous priming was performed before commencing cardiopulmonary bypass. A left ventricular vent was placed at the right superior pulmonary vein and secured. Additional dissection towards the arch was then performed
while on cardiopulmonary bypass. The aortic cross-clamp was placed after decreasing the flow on the bypass and mean arterial pressure w pulling the aorta downward. The aortic clamp was placed at the base of the innominate artery in a beveled
fashion towards the lesser curvature of the arch. A total of 1.0L initial dose of antegrade Del-Nido cardioplegia solution was given and planned for re-dosing every 75 minutes as necessary followed by 200 cc of retrograde cardioplegia given the
aortic valve insufficiency. There was rapid electro-mechanical arrest of the heart at 600 cc of cardioplegia antegrade and we were able to maintain aortic pressure with manual pulsation of the root. The left ventricle was observed for distention on
echocardiogram and manual palpation. Cold slush was placed into a sponge and topically on the RV while we systemically cooled to 34 degrees centigrade.
Carbon dioxide was used to flood the field. The mid ascending aorta at the widest portion was then transected using an 11 blade followed by Metzenbaum scissors. The distal ascending aorta was then folded and placed the side for later resection.
The location of both left and right coronary vessels were visualized in the root. The heart was then medialized and the left atrial appendage was clipped while the heart was fully arrested. I then cut down towards the commissures leaving
approximately 1.5 cm of tissue. The root was then mobilized more the pulmonary artery off of the left main coronary button. The leaflets were excised and sent for pathological assessment. The left main and right coronary buttons were
mobilized. 4-0 pledgeted sutures were used to retract the buttons. A total of 15 pledgeted 2-0 ethibond annular sutures were placed [id number] (inverted) circumferentially. The annulus was sized to a 27 mm bioprosthesis these were brought
through the sewing cuff of the valved conduit which as then parachuted into place. A Cor-Knot device was used to secure the annular sutures. An eye cautery was used to first create a small opening to perform left main coronary button anastomosis.
The button was then trimmed accordingly and using 5-0 Prolene with a bovine pericardial gasket, the button was reimplanted toward the Mahendra-left sinus. Volume was then used to fill the heart to estimate the location for the right coronary button
anastomosis. In a similar fashion an eye cautery was used to create a small opening in the mahendra-right sinus and anastomosis was created with 5-0 Prolene running fashion using bovine pericardium as a gasket. PrevaLeak was used to coat the buttons for
additional reinforcement. The ascending aorta was then resected up to the base of the innominate artery at the cross clamp at the pre-determined marked site. The valved conduit was trimmed accordingly. The distal anastomosis was performed with a
running 4-0 Prolene in a single layer using bovine pericardium as a gasket.
De-airing maneuvers were performed and temporary bipolar ventricular pacing wires were placed on the base of the right ventricle and temporary atrial pacing wires at the SVC/Atrial junction. The patient was placed in a Trendelenburg position and
flows on bypass were lowered. The aortic cross clamp was removed and flows were slowly brought back up. The suture lines appeared hemostatic. Several reinforcement sutures were placed using pledgeted 4-0 Prolene. Transesophageal echocardiography
revealed no AI and appropriate prosthetic function. The retrograde coronary sinus catheter was removed and tied down. Once de-airing was satisfactory, the left ventricular vent was removed. After verifying acceptable parameters, we initiated weaning
from cardiopulmonary bypass. Once we were off cardiopulmonary bypass, the venous cannula was clamped and removed. A test dose of protamine was administered and the patient was monitored for any adverse reaction before resuming protamine. Once half
of the protamine dose was delivered, pump suckers were turned off and the systolic blood pressure was lowered for aortic decannulation. The aortic cannula was removed and pursestrings were tied down. All cannulation sites were oversewn with a 4-0
prolene. The suture lines were inspected and hemostasis was confirmed. Hemostatic agents were placed around all suture lines. Mediastinal hemostasis was obtained. Two 24Fr Anuj drains were placed within the pericardium. The pericardium overlying
the graft was loosely closed with vicryl suture. The sternum was approximated with 4 #7 single and 3 #8 double stainless steel wires. Fascia was approximated with #1 vicryl suture. The subcutaneous, dermis and epidermis were closed in layers in a
running fashion. The skin wound was cleansed and dressed.
All instrument, sponge, and needle counts were confirmed to be correct x 2 at the end of the operation. The patient was transferred to the cardiac intensive care unit in critical but stable condition.
I, Dr. Bubba Davenport, was present, scrubbed for, and performed all critical elements of this procedure.
Bubba Davenport MD, MS
Cardiothoracic Surgeon
[facility] [address]
This dictation was created using the SeeOn dictation system. Please excuse any grammatical, typographical, or 'sound alike' errors
[2024-09-09 00:58] LABS: Glucose - Point of Care 116 mg/dl (70-99)
--- NOTE | 2024-09-09 01:00 | PTCARENOTE ---
received pt from CVOR @ ~0045 into room 2264. pt intubated and sedated. #8 ETT intact to right lip @ 26cm. vent set to SIMV 14/500/5/5/40%. POX 97%. B/L breath sounds present. CT x2 intact to -20cm wall suction, no air leak present. Precedex gtt
infusing @ 0.5mcg. pt awakens to verbal stimuli for brief periods. NSR on monitor, HR 60s. epicardial AV wires intact. pt hypotensive w SBP in 80s. Dr Davenport @ bedside, he adjusted the epicardial wires to AAI 68, mA 10. BP improved. B/L radial and DP
pulses palpable. heart tones clear. CI 2.35. RIJ cordis + swan intact w KVOs infusing. PAPs ~20s/10s. CVP ~14. carter catheter intact, draining CYU. core temp 94.8. sagar hugger applied. absent bowel sounds. Insulin gtt infusing per glycemic protocol.
all surgical sites stable. see worklist for full assessment, VS, and interventions. ordered labs drawn and sent. EKG and CXR done. turning/repositioning pt Q2H and as needed.
--- NOTE | 2024-09-09 01:04 | W.PN.UPDATE ---
Update Note
Progress Note Update
53 year old male seen immediately post op in CVICU for an aortic root replacement (biological Bentall 27 mm valved conduit), ASAEL exclusion (35 mm clip) for an acute type A dissection 09/08->09/[address] Davenport. Noted hemopericardium at the start of
case. 2 fib events coming off CBP s/p defibrillation.
Access: 7 Fr cordis with PA cath, #14 IV L hand, bilateral #20 in AC
CBP 126 min/Ao cross clamp 105 min
intake: 2300, 2 U Plt
output 500 urine
EBL pending
Post SHAKIRA LVEF 65-70%, no RWMA, mean gradient 8 over new valve
CI 2.7 coming off bypass.
arrives on 2 mcg levophed, Precedex 0.5 mcg, insulin 1 unit.
AC 14/500/60/5, peak 19. airway not difficult
A+V wires , arrived on DDD with pacer cabrera appearing over QRS, switched to VVI then AAI
CTs: 2M no Pl @ -20
[place] with clear/yellow urine
Plan:
Neuro: cont Precedex, multimodal pain mgt
CV: levo/Cardene for SBP goal 90-110, currently paced AAI @ 68 with improvement in BP with levo off, CI/CO 2.35/4.72 off levo. will remove PA cath in AM if targets achieved. can DC R art line.
Pulm: reduce FiO2 to 40%, AC-> PSV to goal extubate
GI: NPO
Renal: follow UOP, FFP for volume if needed
Endo: insulin drip, targets per institutional policy
heme: repeat coags, FFP/cryo to correct if needed
[2024-09-09 01:09] LABS: B.E. 2.3 mmol/L; HCO3 27.3 mmol/L (21-28); Ionized Calcium 1.19 mMOL/L (1.15-1.33); O2 Saturation % 98.3 % (94-98); PCO2 43 mmHg (35-48); PO2 104 mmHg (83-108); Potassium 2.8 mMOL/L (3.5-5.1); Sodium 138 mMOL/L (136-145); pH 7.41 (7.35-7.45)
[2024-09-09 01:12] LABS: Mixed Venous O2 Saturation 73.8 %
[2024-09-09 01:24] LABS: Blood Urea Nitrogen 14 mg/dl (9-20); Estimated Creatinine Clearance 102 ml/min; Glucose 115 mg/dl (70-99); Magnesium 3.3 mg/dl (1.6-2.3)
[2024-09-09 01:26] LABS: Fibrinogen 232 MG/DL (199-459)
[2024-09-09 01:27] LABS: INR 1.35; PT 17.2 Sec (11.4-14.6)
[2024-09-09 01:28] LABS: APTT 40.4 Sec (23.4-35.0)
[2024-09-09] MEDS: ANCEF 10 IV ×2 (02:01)
[2024-09-09 02:09] LABS: Glucose - Point of Care 122 mg/dl (70-99)
[2024-09-09 02:51] LABS: Glucose - Point of Care 124 mg/dl (70-99)
[2024-09-09 02:59] LABS: Hematocrit 32.3 % (39.0-52.0); Hemoglobin 11.4 g/dL (13.0-18.0); Platelet Count 192 10^3/uL (130-400)
[2024-09-09] MEDS: SENOKOT-S PO (03:12)
[2024-09-09] MEDS: TYLENOL PO ×3 (03:12→13:23)
[2024-09-09] MEDS: NEURONTIN PO (03:12)
[2024-09-09] MEDS: BACTROBAN 2% OINTMENT 1 APPLIC NASAL ×3 (03:14→20:29)
[2024-09-09 03:52] LABS: Glucose - Point of Care 106 mg/dl (70-99)
[2024-09-09] MEDS: KCL 50 IV ×3 (03:52→06:51)
[2024-09-09] MEDS: NSS 500 IV (03:52)
[2024-09-09 04:52] LABS: Glucose - Point of Care 113 mg/dl (70-99)
[2024-09-09] MEDS: ASPIRIN 300 MG RECTAL (04:52)
[2024-09-09] MEDS: ALBUMIN 5% 250 IV ×2 (04:52→06:50)
--- NOTE | 2024-09-09 05:30 | PTCARENOTE ---
pt placed on SBT by respiratory therapist. POX 99%
[2024-09-09 05:53] LABS: Glucose - Point of Care 121 mg/dl (70-99)
[2024-09-09 06:02] LABS: B.E. 1.4 mmol/L; HCO3 27.2 mmol/L (21-28); Ionized Calcium 1.19 mMOL/L (1.15-1.33); PCO2 47 mmHg (35-48); PO2 156 mmHg (83-108); pH 7.37 (7.35-7.45)
--- NOTE | 2024-09-09 06:23 | RESPNOTE ---
pt extubated to 6L n/c @ 06:15, vitals stable
[2024-09-09 06:27] LABS: Blood Urea Nitrogen 16 mg/dl (9-20); Carbon Dioxide 28 mmol/L (22-30); Chloride 106 mmol/L (98-107); Estimated Creatinine Clearance 92 ml/min; Glucose 118 mg/dl (70-99); Magnesium 2.5 mg/dl (1.6-2.3); Potassium 3.7 mmol/L (3.5-5.1); Sodium 140 mmol/L (135-145); eGFR > 60.00
[2024-09-09 06:29] LABS: Hematocrit 32.2 % (39.0-52.0); Hemoglobin 11.2 g/dL (13.0-18.0); Mean Corp Hgb Conc. 34.8 g/dL (33.0-37.0); Mean Corpuscular Hgb 29.9 pg (27.0-31.0); Mean Corpuscular Volume 85.9 fL (80.0-94.0); Mean Platelet Volume 8.8 fL (7.4-10.4); Platelet Count 236 10^3/uL (130-400); Red Blood Cell Count 3.75 10^6/uL (4.70-6.10); Red Cell Dist. Width 12.4 % (11.5-14.5); White Blood Cell Count 16.1 10^3/uL (4.8-10.8)
[2024-09-09] MEDS: DILAUDID 0.5 MG IV (06:47)
--- NOTE | 2024-09-09 06:55 | PTCARENOTE ---
pt extubated @ 0615 to 6LNC without incident. swan and right radial art line d/c'd per CT PA.
--- NOTE | 2024-09-09 07:40 | CON.INTV ---
Consultation
Consultation Request
Date/Time Consultation Requested: 09/09
Date/Time Consultation Performed: 09/09
Reason for Consultation: Critical care
Medical History
-
History of Present Illness:
History obtained from the chart, hospital records and outpatient records. Patient currently waking up, just extubated few hours prior. Patient is a 53-year-old male with known dilated aortic ascending aneurysm, bicuspid aortic valve followed by
cardiology who presents with jaw discomfort, diaphoresis, lightheadedness while eating dinner. This worsened, making it difficult to sleep, rated 10/10. He brought himself into [facility] where upon arrival afebrile, pulse 78, breathing at
16, blood pressure 140/86, 99%. CT angiogram was obtained which showed type a aortic dissection. Patient was started on esmolol drip. CT surgery was consulted. Patient underwent sternotomy with aortic root replacement with biological valve
09/09/2024. We are asked to help from a critical care standpoint
Of note, patient was extubated earlier this morning, extubated to 6 L. Presently is comfortable appearing, mild splinting on exam but following commands, appears comfortable
.
PMH: Hypertension, hyperlipidemia, incomplete right bundle branch block. History of ascending aortic aneurysm, bicuspid aortic valve, DJD, history of avascular necrosis of scaphoid. Bilateral hernia with repair in 2021. History of peripheral
vascular disease with claudication, follows vascular surgery
Past Medical History
Past Medical History: None (See above)
Past Surgical History: None (See above)
Social History
Tobacco: Former Smoker (Quit 2015)
Alcohol: Former (Quit cold turkey 2014)
Drug: None
Personal:
Living: With Family
Family History
Family History: Other (Father from COVID 2019. 2 siblings healthy. 3 daughters healthy)
Allergies / Home Medications
Allergies
Allergy/AdvReac Type Severity Reaction Status Date / Time
lisinopril Allergy cough Verified 09/08/24 19:46
Home Medications
�Medication �Instructions �Recorded �Confirmed �Last Taken �Type
amlodipine 5 mg tablet 5 mg PO DAILY 02/09/22 09/08/24 09/08/24 History
aspirin 81 mg tablet,delayed 81 mg PO DAILY 09/08/24 09/08/24 09/08/24 History
release
aspirin 81 mg tablet,delayed 162 mg PO DAILYPRN PRN chest pain 09/08/24 09/08/24 09/07/24 History
release
coenzyme Q10 100 mg capsule 100 mg PO DAILY 09/08/24 09/08/24 09/08/24 History
(CoQ-10)
rosuvastatin 10 mg tablet 10 mg PO DAILY 09/08/24 09/08/24 09/08/24 History
Review of Systems
-
Unable to Obtain full review of systems at this time due to: Acuity
All other systems: Negative unless noted
Vitals / Labs / Diagnostic Testing
Vital Signs
Temp Pulse Resp BP Pulse Ox
98 F 68 14 94/60 97
09/09/24 07:00 09/09/24 07:00 09/09/24 07:00 09/09/24 06:45 09/09/24 07:00
Lab Data
09/09/24 05:53
09/09/24 05:53
Laboratory Results
09/09/24 09/09/24
00:54 05:53
PT 17.2 H
INR 1.35
APTT 40.4 H
pH 7.41 7.37
pCO2 43 47
pO2 104 156 H
HCO3 27.3 27.2
O2 Delivery Level
Diagnostic Testing:
Physical Exam
-
HEENT: Normocephalic, Anicteric and Other (IJ, A-line)
Cardiovascular: S1/S2, Regular Rhythm, Murmur (n), Rub (n), Peripheral Edema (n) and Other (Chest tube with no significant drainage)
Respiratory: Wheeze (n), Rales (n), Rhonchi (n), Non-Labored Respirations and Other (Mild splinting)
GI: Soft, Non Distended and Non Tender
Neurology: Awake, Alert and No Motor Deficits (Moves extremities)
Skin: Good Color
General: Comfortable
Assessment
-
53-year-old male with history of bicuspid arctic valve, 5.2 cm ascending aortic aneurysm, presents with acute onset of chest pain, lightheadedness, nausea found to have type a aortic dissection with severe aortic valve insufficiency. Patient
underwent sternotomy with aortic root replacement with biological Bentall 09/09/2024.
S/p aortic root replacement with biological Bentall valved conduit for type a dissection 09/08-
Hemopericardium at initiation of case
Extubated 09/09 in a.m.
Acute chest pain onset around 9:30 PM 09/08
Incomplete right bundle branch block
History of bicuspid aortic valve with severe aortic insufficiency
History of thoracic Ascending aortic aneurysm
Hypertension/hyperlipidemia
Peripheral arterial disease, followed by vascular surgery
Former alcoholism, quit 2014
Former smoker, quit 2015
Multiple pulmonary nodules, largest 6 mm
Questionably worse compared to 2020
Plan/recommendations
At this time, patient remains critically ill but stable
Chest tube output minimal
Postoperative SHAKIRA with no wall motion abnormalities. Cardiac index 2.7 postprocedure
Initially required norepinephrine, insulin, Precedex, extubated this morning
AV wires in place
Chest x-ray unremarkable
Moving forward
Continue with excellent care per CT surgery
Follow hemoglobin, blood sugars, transfuse per CT surgery
Chest tube output minimal
Hemopericardium noted at initiation of case
Pain control
Incentive spirometry
Reviewed CT images. Multiple small nodules noted.
Would recommend repeat CT chest in February 2025 with pulmonary follow-up
Reviewed with critical care nursing
We will follow
TCCT 31 min
[2024-09-09] MEDS: DILAUDID 0.25 MG IV (08:00)
[2024-09-09] MEDS: LIDOCAINE 4% PATCH 1 PATCH TOPICAL (08:00)
[2024-09-09] MEDS: ANCEF 5 IV ×3 (08:00→23:40)
--- NOTE | 2024-09-09 08:00 | PTCARENOTE ---
resumed care of patient from previous RN. Resting in bed at time of assessment. daughter and friend at bedside. A paced at 68. AV wires. A on and set to AAI 68/10. POX 97%. 4L nc. IS 1000. lungs diminished and shallow. CT x2 intact to -20cm wall
suction, no air leak present. draining red. Juanjo on at 4mcg. weaned to 2 upon arrival and assessment. will wean to off as able. pulses palpable. trace gen edema. [place] draining tea colored urine. RIJ cordis intact w KVOs infusing. hypo bowel
sounds. poor appetite. Insulin gtt infusing per glycemic protocol. all surgical sites stable. will continue to monitor.
[2024-09-09] MEDS: NOVOLOG FLEXPEN SC (08:03)
[2024-09-09 08:08] LABS: Glucose - Point of Care 140 mg/dl (70-99)
[2024-09-09] MEDS: CRESTOR 10 MG PO (09:40)
[2024-09-09] MEDS: NEURONTIN 100 MG PO ×3 (09:53→22:21)
[2024-09-09] MEDS: MAGNESIUM OXIDE 500 MG PO ×2 (09:53→20:27)
[2024-09-09] MEDS: SENOKOT-S 1 TABLET PO ×2 (09:54→20:27)
[2024-09-09] MEDS: LOW STRENGTH ASPIRIN 81 MG PO (09:54)
[2024-09-09] MEDS: PROTONIX 40 MG PO (09:55)
[2024-09-09 10:04] LABS: Glucose - Point of Care 150 mg/dl (70-99)
--- NOTE | 2024-09-09 10:04 | PTOTSP ---
Clinical Swallow Evaluation
53M with admission for emergent type A dissection p/w a functional oropharyngeal swallow. No overt s/s of aspiration or penetration demonstrated this date. Unable to r/o silent aspiration at bedside, please re-consult if s/s of aspiration arise.
Recommend:
1. Regular textures (IDDSI 7), thin liquids (IDDSI 0)
2. Meds as tolerated
3. General aspiration precautions
4. Ensure top denture is in place for mastication of regular solid
5. SENIOR ASIC DESIGN ENGINEER service to s/o. Unable to r/o silent aspiration at bedside, please re-consult if s/s of aspiration arise.
[2024-09-09 10:41] LABS: Glycohemoglobin (HgbA1c) 6.1 % (4.0-5.6)
--- NOTE | 2024-09-09 11:12 | CON.CAR ---
Consultation
Consultation Request
Date/Time Consultation Requested: September 09, 2024
Date/Time Consultation Performed: September 09, 2024
Requesting Provider: CT surgery
Performing Provider: Melvin
Reason for Consultation: Status post aortic dissection repair
Medical History
-
Chief Complaint: Status post aortic dissection repair
History of Present Illness:
53-year-old male with history of bicuspid aorctic valve, 5.2 cm ascending aortic aneurysm, presents with acute onset of chest pain, lightheadedness, nausea found to have type a aortic dissection with severe aortic valve insufficiency. Patient
underwent sternotomy with aortic root replacement with biological Bentall 09/09/2024. Seen postoperatively after repair. He is currently atrial paced and feels overall well despite having recent surgery. He is extubated and has mediastinal tubes
in place.
Past medical history
s/p aortic root replacement with biological Bentall valved conduit for type a dissection 09/08-
Hemopericardium at initiation of case
Extubated 09/09 in a.m.
Acute chest pain onset around 9:30 PM 09/08
Incomplete right bundle branch block
History of bicuspid aortic valve with severe aortic insufficiency
History of thoracic Ascending aortic aneurysm
Hypertension/hyperlipidemia
Peripheral arterial disease, followed by vascular surgery
Former alcoholism, quit 2014
Former smoker, quit 2015
Multiple pulmonary nodules, largest 6 mm
Questionably worse compared to 2020
Past Medical History
Past Medical History: Valvular Disease
Past Surgical History: Cardiac
Social History
Tobacco: Former Smoker
Alcohol: None
Drug: None
Personal:
Living: With Family
Employment: Employed
Family History
Family History: Reviewed & Not Pertinent
Allergies / Home Medications
Allergy/AdvReac Type Severity Reaction Status Date / Time
lisinopril Allergy cough Verified 09/08/24 19:46
�Medication �Instructions �Recorded �Confirmed �Type
amlodipine 5 mg tablet 5 mg PO DAILY Blood Pressure 02/09/22 09/08/24 History
aspirin 81 mg tablet,delayed 81 mg PO DAILY Blood Clot 09/08/24 09/08/24 History
release Prevention/Tx
aspirin 81 mg tablet,delayed 162 mg PO DAILYPRN PRN chest pain 09/08/24 09/08/24 History
release
coenzyme Q10 100 mg capsule 100 mg PO DAILY Supplement 09/08/24 09/08/24 History
(CoQ-10)
rosuvastatin 10 mg tablet 10 mg PO DAILY High Cholesterol 09/08/24 09/08/24 History
Review of Systems
-
All other systems: Negative unless noted
Cardiac: No Symptoms
Abdomen/GI: No Symptoms
: No Symptoms
Physical Exam
Vital Signs
Temp Pulse Resp BP Pulse Ox
98 F 65 11 100/63 96
09/09/24 07:00 09/09/24 10:00 09/09/24 09:30 09/09/24 09:00 09/09/24 10:00
Lab Results
09/09/24 05:53
09/09/24 05:53
Troponin I 0.012 ng/ml 09/08/24 13:41
Troponin I Cancelled 09/08/24 13:41
Physical Exam
General: Well Developed and Well Nourished
HEENT: Normocephalic and Anicteric
Respiratory: Other (Diminished)
Cardiac: S1/S2 and Regular Rhythm (Atrially paced)
GI: Soft, Non Tender and Non Distended
Rectal: Deferred by Provider
Genito-urinary: Clear Urine
Musculoskeletal: No Clubbing and No Cyanosis
Skin: Warm and Dry
Neuro: Awake, Alert and Oriented
Hematologic/Lymphatic: No Lymphadenopathy
Psych: Calm
Impression / Plan
-
53-year-old male with history of bicuspid arctic valve, 5.2 cm ascending aortic aneurysm, presents with acute onset of chest pain, lightheadedness, nausea found to have type a aortic dissection with severe aortic valve insufficiency. Patient
underwent sternotomy with aortic root replacement with biological Bentall 09/09/2024.
Impression:
S/p aortic root replacement with biological Bentall valved conduit for type a dissection 09/08-
Hemopericardium at initiation of case
Extubated 09/09 in a.m.
Acute chest pain onset around 9:30 PM 09/08
Incomplete right bundle branch block
History of bicuspid aortic valve with severe aortic insufficiency
History of thoracic Ascending aortic aneurysm
Hypertension/hyperlipidemia
Peripheral arterial disease, followed by vascular surgery
Former alcoholism, quit 2014
Former smoker, quit 2015
Multiple pulmonary nodules, largest 6 mm
Questionably worse compared to 2020
Plan/recommendations
At this time, patient remains critically ill but stable
Chest tube output minimal
Postoperative SHAKIRA with no wall motion abnormalities. Cardiac index 2.7 postprocedure
Initially required norepinephrine, insulin, Precedex, extubated this morning and wean drips as able
Currently atrial paced. His underlying atrial rhythm was in the 50s I suspect he will not require permanent pacing
Continue with excellent care per CT surgery
Chest tube output minimal
Hemopericardium noted at initiation of case we will follow-up with echocardiogram this week
Pain control
Incentive spirometry
Will follow with you
Data Reviewed
-
EKG: Tracing Personally Visualized and interpreted
CT Scan: Report Reviewed by me
Labs: Labs Reviewed by me
Old Records: Reviewed
[2024-09-09 13:02] LABS: Glucose - Point of Care 129 mg/dl (70-99)
[2024-09-09] MEDS: ROXICODONE 5 MG PO ×3 (13:22→23:39)
[2024-09-09] MEDS: FERRLECIT 110 MG IV (14:29)
[2024-09-09] MEDS: NOVOLOG FLEXPEN 4 UNITS SC ×2 (14:57→16:23)
[2024-09-09 15:02] LABS: Glucose - Point of Care 126 mg/dl (70-99)
[2024-09-09 16:23] LABS: Glucose - Point of Care 133 mg/dl (70-99)
--- NOTE | 2024-09-09 16:40 | W.PN.ANS.POP ---
Anesthesia Post Operative
- Anesthesia Post Op Note
Vital Signs Stable-See Nursing Note: Yes
Airway Patent: Yes
Adequate Pain Control: Yes
Change in Mental Status: No
Current Postoperative Nausea & Vomiting: No
Anesthesia Complications: No
General Anesthetic Recall: No
Unplanned Admission: No
Post Op Hydration Adequate: Yes
[2024-09-09 17:50] LABS: Glucose - Point of Care 206 mg/dl (70-99)
[2024-09-09 19:11] LABS: Glucose - Point of Care 144 mg/dl (70-99)
--- NOTE | 2024-09-09 20:00 | PTCARENOTE ---
Assumed care of patient at 1900. Patient found OOB in chair at time of assessment with friend at bedside. Patient is AOx4, follows commands appropriately, moves all extremities. Lung sounds are diminished at the bases, saO2 92% on 2L via NC, CTx2:
Medsx2 to one atrium draining red sanguineous. Heart sounds are audible, SR, patient has normal palpable pulses and trace generalized anasarca. Patient has hypoactive BS throughout all four quadrants and is voiding clear yellow. There is a sternal
incision approx with surg adhesive ASHLEE. Patient has R IJ cordis receiving KVO and R/L AC PIV receiving insulin gtt. VSS. Call glass within reach.
[2024-09-09] MEDS: NOVOLIN R INSULIN INFUSION 100 IV (20:27)
[2024-09-09] MEDS: TYLENOL 1000 MG PO (22:21)
[2024-09-09 23:15] LABS: Glucose - Point of Care 117 mg/dl (70-99)
[2024-09-09 23:15] LABS: Glucose - Point of Care 91 mg/dl (70-99)
[2024-09-09 23:15] LABS: Glucose - Point of Care 90 mg/dl (70-99)
[2024-09-09] MEDS: NSS IV (23:49)
[2024-09-10] VITALS (33 sets, daily range): BP systolic 81–137; BP diastolic 59–95; PULSE 85; O2SAT 90–95; BMI 25.4
--- NOTE | 2024-09-10 00:22 | W.PN.CT ---
Today's Communication / Plan
-
-POD #1
-No acute overnight events
-Off levo since yesterday AM
-Currently NSR, Paced AAI rate 68 post op for hemodynamic stability now with intrinsic rate at 80, has A+V wires
-on 2 L NC, IS use reinforced
-2M CTs 130/290 out in 12/24 hrs
-UOP 425/1465 in 12/24 hrs, carter out
-multimodal pain mgt
-remains on insulin gtt
-continue ASA, IV iron, rosuvastatin, PPI. Amio and metoprolol 12.5 mg to start today
Assessment / Plan
-
Acute [place] type A Dissection s/p Aortic root replacement with biological Bentall 27 mm valved conduit, ASAEL exclusion with 35 mm clip, ascending aortic replacement with Dr. Davenport 09/08/24-> 09/09/24 POD #1
Post SHAKIRA LVEF 65%, no RWMA, no AV insufficiency with mean gradient 8 mmHg
Ascending aortic aneurysm
Bicuspid AV
Severe AI
HTN
HLD
PVD
Pre-DM
Incomplete RBBB
Former EtOH abuse
Former smoker
Acute hemopericardium
Acute coagulopathy s/p 2 U platelets
Acute hypoxic respiratory failure
Acute blood loss anemia
Acute post op pain
Subjective
Procedure
s/p Aortic root replacement with biological Bentall 27 mm valved conduit, ASAEL exclusion with 35 mm clip, ascending aortic replacement with Dr. Davenport 09/08/24-> 09/09/24
-
Date of Service: September 10, 2024
Objective Data
-
PT 17.2 Sec (11.4-14.6) H 09/09/24 00:54
INR 1.35 09/09/24 00:54
APTT 40.4 Sec (23.4-35.0) H 09/09/24 00:54
Vital Signs
Vital Signs
Temp Pulse Resp BP Pulse Ox
99.4 F 79 19 135/73 92
09/09/24 19:25 09/09/24 23:00 09/09/24 23:00 09/09/24 22:19 09/09/24 22:44
CT Intake/Output/Weight
09/09/24 09/09/24 09/10/24
06:59 18:59 06:59
Intake Total 494.3 / 521.6 131.1 / 202.9 71.8 / 202.9
Output Total 510 / 670 750 / 1295 545 / 1295
Balance -15.7 / -148.4 -618.9 / -1092.1 -473.2 / -1092.1
SaO2: 92
Physical Exam
-
General: Awake, Oriented and AOx3
Cardiovascular: Regular rate & rhythm, No Murmurs and No Rub
Respiratory: Clear and Equal
Sternum: Stable
Incision: Clean, Dry and Intact
Extremities: No Edema and No Erythema
Data Reviewed
-
Lab Results: Results Reviewed
Medications: Active Meds Reviewed
Chest X-Ray: Report Reviewed and Image Reviewed
ECG: Report Reviewed
[2024-09-10 00:24] LABS: Glucose - Point of Care 120 mg/dl (70-99)
[2024-09-10 01:15] LABS: Glucose - Point of Care 106 mg/dl (70-99)
--- NOTE | 2024-09-10 02:16 | PTCARENOTE ---
Patient reassessed. VSS. Remains in SR on the monitor. Given 5mg Oxyx1 for pain. Successful voidsx2 with clear yellow urine. Call glass within reach.
[2024-09-10 03:06] LABS: Glucose - Point of Care 73 mg/dl (70-99)
[2024-09-10 04:04] LABS: Hematocrit 30.7 % (39.0-52.0); Hemoglobin 10.5 g/dL (13.0-18.0); Mean Corp Hgb Conc. 34.2 g/dL (33.0-37.0); Mean Corpuscular Volume 87.7 fL (80.0-94.0); Platelet Count 181 10^3/uL (130-400); Red Cell Dist. Width 12.9 % (11.5-14.5); White Blood Cell Count 19.3 10^3/uL (4.8-10.8)
[2024-09-10 04:18] LABS: Glucose - Point of Care 93 mg/dl (70-99)
[2024-09-10 04:25] LABS: Blood Urea Nitrogen 15 mg/dl (9-20); Calcium 8.1 mg/dl (8.4-10.2); Carbon Dioxide 28 mmol/L (22-30); Chloride 100 mmol/L (98-107); Estimated Creatinine Clearance 92 ml/min; Glucose 79 mg/dl (70-99); Magnesium 2.5 mg/dl (1.6-2.3); Potassium 4.2 mmol/L (3.5-5.1); Sodium 135 mmol/L (135-145); eGFR > 60.00
[2024-09-10 05:21] LABS: Glucose - Point of Care 121 mg/dl (70-99)
[2024-09-10] MEDS: ROXICODONE 5 MG PO (05:24)
[2024-09-10] MEDS: TYLENOL 1000 MG PO ×3 (05:24→20:17)
[2024-09-10 06:17] LABS: Glucose - Point of Care 100 mg/dl (70-99)
--- NOTE | 2024-09-10 07:14 | PTCARENOTE ---
Patient reassessed. VSS. Additional Oxy 5 for pain. Remains on 2L via NC. OOB to chair without incidence. AM labs obtained. AM hygiene care provided.
[2024-09-10 07:15] LABS: Glucose - Point of Care 119 mg/dl (70-99)
[2024-09-10 07:55] LABS: Glucose - Point of Care 101 mg/dl (70-99)
[2024-09-10] MEDS: NEURONTIN 100 MG PO ×3 (08:07→20:17)
[2024-09-10] MEDS: PACERONE 200 MG PO ×3 (08:07→20:17)
[2024-09-10] MEDS: LOW STRENGTH ASPIRIN 81 MG PO (08:07)
[2024-09-10] MEDS: LOPRESSOR 12.5 MG PO ×2 (08:08→20:18)
[2024-09-10] MEDS: GLUCOPHAGE XR EXTENDED RELEASE 500 MG PO (08:09)
[2024-09-10] MEDS: SENOKOT-S 1 TABLET PO ×2 (08:09→20:17)
[2024-09-10] MEDS: CRESTOR 10 MG PO (08:09)
[2024-09-10] MEDS: PROTONIX 40 MG PO (08:09)
[2024-09-10] MEDS: NOVOLOG FLEXPEN-MODERATE RESISTANCE SC (08:11)
[2024-09-10] MEDS: BACTROBAN 2% OINTMENT 1 APPLIC NASAL ×2 (08:12→20:18)
--- NOTE | 2024-09-10 08:16 | W.PN.CARDCBS ---
Today's Communication / Plan
-
Cont post op care
Impression / Plan
-
.
Impression:
s/p Aortic root replacement with biological Bentall 27 mm valved conduit ASAEL exclusion with 35 mm clip, ascending aortic replacement with Dr. Davenport 09/08/24-> 09/09/24 for [place] Type A dissection
Extubated 09/09 in a.m.
s/p hemopericardium at initiation of case
Incomplete right bundle branch block
History of bicuspid aortic valve with moderate aortic insufficiency by recent outpt echo
History of thoracic Ascending aortic aneurysm, 5.[address]
Hypertension/hyperlipidemia
Peripheral arterial disease, followed by vascular surgery
Former alcoholism, quit 2014
Former smoker, quit 2015
Multiple pulmonary nodules, largest 6 mm
Hyperlipidemia
Plan:
Cont post op care.
No arrhythmias overnight.
Received Lopressor and bp stable.
Monitor daily wts and Is and Os. Appears euvolemic
Incentive spirotmetry.
CT care as per CT surgery
He was appreciative of care.
Discussed with CT surgery and with nursing.
HPI: 53-year-old male with history of bicuspid arctic valve, 5.2 cm ascending aortic aneurysm, presents with acute onset of chest pain, lightheadedness, nausea found to have type a aortic dissection with severe aortic valve insufficiency. Patient
underwent sternotomy with aortic root replacement with biological Bentall 09/09/2024. Acute chest pain onset around 9:30 PM 09/08
Progress Note - Electrical Intern
Subjective
Date of Service: September 10, 2024
Pt seen and examined. No cp or dyspnea
Objective
Labs:
09/10/24 03:39
09/10/24 03:39
Labs
Hgb 10.5 g/dL (13.0-18.0) L 09/10/24 03:39
Hct 30.7 % (39.0-52.0) L 09/10/24 03:39
Plt Count 181 10^3/uL (130-400) D 09/10/24 03:39
PT 17.2 Sec (11.4-14.6) H 09/09/24 00:54
INR 1.35 09/09/24 00:54
APTT 40.4 Sec (23.4-35.0) H 09/09/24 00:54
Sodium 135 mmol/L (135-145) 09/10/24 03:39
Potassium 4.2 mmol/L (3.5-5.1) 09/10/24 03:39
BUN 15 mg/dl (9-20) 09/10/24 03:39
Creatinine 1.0 mg/dL (0.7-1.3) 09/10/24 03:39
Glucose 79 mg/dl (70-99) 09/10/24 03:39
Troponins
09/08/24 09/08/24
13:41 13:41
Troponin I 0.012 Cancelled
Vital Signs and I&O:
Vital Signs
Temp Pulse Resp BP Pulse Ox
98.7 F 82 16 101/66 90
09/10/24 07:55 09/10/24 08:08 09/10/24 07:55 09/10/24 08:08 09/10/24 07:55
Vital Signs
Temp Pulse Resp BP Pulse Ox
98.7 F 82 16 101/66 90
09/10/24 07:55 09/10/24 08:08 09/10/24 07:55 09/10/24 08:08 09/10/24 07:55
Intake & Output
09/08/24 09/09/24 09/10/24 09/11/24
06:59 06:59 06:59 06:59
Intake Total 494.3 / 521.6 290.5 / 290.5
Output Total 510 / 670 2340 / 2340
Balance -15.7 / -148.4 -2048.5 / -2048.5
Physical Exam
Physical Exam
General: No acute distress, AAOX3
Neck: Negative JVD
Heart: Regular, Negative S3 positive S1/S2, Negative S4, No murmur
Lungs: CTA b/l, negative wheezes/rales/rhonchi
Thorax: CT in place
Abd: Positive BS, NT/ND, neg rebound/rigidity/guarding
Ext: Negative cyanosis/clubbing/edema
Neuro: nonfocal
[2024-09-10] MEDS: LIDOCAINE 4% PATCH 1 PATCH TOPICAL (08:22)
--- NOTE | 2024-09-10 08:54 | PTCARENOTE ---
Patient received from night baker RN. Patient is OOB sitting comfortably in chair AO x 3. Patient states that his pain is a 4/10 and tolerable while deep breathing in his upper abdomen/chest. VSS BP100/61 POX 90 on 2L NC. Radial and pedal pulses
strong bilaterally. Bowel sounds hypoactive in all 4 quadrants. Patient describes decreased sense of touch on palm of his right 5th metacarpal. 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 Left wrist IV, right cephalic IV, and right cordis patent and
intact. Lungs diminished at basses. 2 mediastinal chest tubes to -20 suction draining red fluid no air leaks tidaling or crepitus. AV wires present set to back up AAI 40/10. IS encouraged 1L achieved. Insulin drip D/C per order. Sternal incision
dry and well approximated with skin glue. Chest tube dressings clean and intact.
[2024-09-10] MEDS: MAGNESIUM OXIDE PO ×2 (09:13→20:30)
--- NOTE | 2024-09-10 09:30 | PTCARENOTE ---
AV wires pulled by CT FOOD SAFETY COORDINATOR Raven. Monitoring q15 vitals and chest tube output.
[2024-09-10] MEDS: LASIX 40 MG IV ×2 (09:32→15:41)
--- NOTE | 2024-09-10 11:00 | PTCARENOTE ---
Patient assessed. Pt. sitting OOB in chair comfortably. VSS BP 95/65 POX 91 RA normal sinus rhythm. Chest tubes D/C and removed from patient. Old chest tube site dressing dry and intact. Patient voided 3x clear yellow urine. Call glass within
reach.
--- NOTE | 2024-09-10 11:05 | PTCARENOTE ---
Mediastinal chest tubes x2 d/c per orders. Pt tolerated.
[2024-09-10 13:15] LABS: Glucose - Point of Care 185 mg/dl (70-99)
[2024-09-10] MEDS: NOVOLOG FLEXPEN-MODERATE RESISTANCE 1 UNITS SC ×2 (13:17→17:40)
--- NOTE | 2024-09-10 13:42 | W.PN.INTV ---
Today's Communication / Plan
Recommendations
Continue postoperative care
Chest tube output will be followed
Daily chest x-ray
Follow H&H
Increase mobility as able
Signed off
Assessment
-
53-year-old male with history of bicuspid arctic valve, 5.2 cm ascending aortic aneurysm, presents with acute onset of chest pain, lightheadedness, nausea found to have type a aortic dissection with severe aortic valve insufficiency. Patient
underwent sternotomy with aortic root replacement with biological Bentall 09/09/2024.
S/p aortic root replacement with biological Bentall valved conduit for type a dissection 09/08-
Hemopericardium at initiation of case
Extubated 09/09 in a.m.
Acute chest pain onset around 9:30 PM 09/08
Incomplete right bundle branch block
History of bicuspid aortic valve with severe aortic insufficiency
History of thoracic Ascending aortic aneurysm
Hypertension/hyperlipidemia
Peripheral arterial disease, followed by vascular surgery
Former alcoholism, quit 2014
Former smoker, quit 2015
Multiple pulmonary nodules, largest 6 mm
Questionably worse compared to 2020
Plan/recommendations
-
POD#1
Patient doing well
Pain relatively controlled
Hemodynamics acceptable-vasopressor been discontinued.
Encourage incentive spirometry
Increase activity as able
-
Continue with excellent care per CT surgery
Chest x-ray without collections or pneumothorax
Chest tube output not excessive
Continue with daily chest x-ray
-
Follow daily hemoglobin
-
Reviewed CT images. Multiple small nodules noted.
Would recommend repeat CT chest in February 2025 with pulmonary follow-up, information will be left in the chart
Patient has been moved to telemetry phase
Critical care team will sign off
Please call with question
Subjective Dataa
Subjective Data
Date of Service:
Date of Service: September 10, 2024
Chief Complaint: Community Health Specialist Follow Up (s/p Aortic root replacement with biological Bentall 27 mm valved conduit, ASAEL exclusion with 35 mm clip, ascending aortic replacement)
Subjective:
No overnight events.
No specific complaints.
Sitting on a chair, denies pain, denies shortness of breath or coughing.
Review of Systems
General: Fever (n)
Cardiopulmonary: Dyspnea (none at rest)
GI: Abdominal Pain (n) and Nausea (n)
Neuro: Headache (n)
Objective Data
Data Reviewed
Vital Signs / I&O / Oxygen:
Vital Signs
Temp Pulse Resp BP Pulse Ox
98 F 75 15 95/65 91
09/10/24 11:54 09/10/24 11:52 09/10/24 11:54 09/10/24 11:52 09/10/24 11:54
Intake and Output
09/09/24 09/10/24 09/11/24
06:59 06:59 06:59
Intake Total 494.3 / 521.6 290.5 / 290.5 530 / 530
Output Total 510 / 670 2340 / 2340 1800 / 1800
Balance -15.7 / -148.4 -2049.5 / -2049.5 -1270 / -1270
SaO2 [SIMV] 98
SaO2 91
Nasal Cannula flow liters per 2
minute
Physical Exam
General: Comfortable
HEENT: Normocephalic
Cardiovascular: S1-S2
Respiratory: Clear, Non-Labored Respirations and Chest Tube (no airleak )
GI: Soft and Non Distended
Neurology: Awake, Alert and No Motor Deficits
Skin: Warm
Labs/Micro/Reports
Lab Data
09/10/24 03:39
09/10/24 03:39
[2024-09-10] MEDS: FERRLECIT 110 MG IV (14:27)
[2024-09-10] MEDS: KCL 40 MEQ PO (15:39)
--- NOTE | 2024-09-10 16:08 | PTCARENOTE ---
Patient assessed. Sitting OOB in chair comfortable. Walked 400 feet with no SOB. VSS POX 91% RA. Surgical site stable.
[2024-09-10 17:38] LABS: Glucose - Point of Care 171 mg/dl (70-99)
--- NOTE | 2024-09-10 17:40 | CM ---
spoke to pt in room, he is prev indep, lives alone in an apt with 6 steps to enter. he denies any dme's. he is agreeable to a f/u appt with with ct transitonal care nurse after dc.
--- NOTE | 2024-09-10 20:00 | PTCARENOTE ---
received pt from previous rn. pt AAox4, VSS, NSR per tele monitor HR 70s, + pulses, pox 90-93% on RA, IS 1000, lung diminished at bases, +bs, voids clear yellow urine in urinal, all surgical sites intact, ct dressing c/d/i, RIJ cordis infusing KVO,
PIVx3 flush intact, plan of care discussed questions encouraged.
[2024-09-10 23:18] LABS: Glucose - Point of Care 174 mg/dl (70-99)
[2024-09-11] VITALS (7 sets, daily range): BP systolic 97–133; BP diastolic 66–76; PULSE 77; O2SAT 91–94; BMI 24.9
--- NOTE | 2024-09-11 00:13 | PTCARENOTE ---
VSS, NSR per tele monitor, assessment remains unchanged otherwise
[2024-09-11] MEDS: NSS IV (01:15)
[2024-09-11] MEDS: MELATONIN 5 MG PO (02:14)
[2024-09-11 02:53] LABS: Ionized Calcium 1.07 mMOL/L (1.15-1.33)
[2024-09-11 02:57] LABS: Hematocrit 30.4 % (39.0-52.0); Hemoglobin 10.4 g/dL (13.0-18.0); Mean Corp Hgb Conc. 34.2 g/dL (33.0-37.0); Mean Corpuscular Hgb 30.1 pg (27.0-31.0); Mean Corpuscular Volume 88.1 fL (80.0-94.0); Mean Platelet Volume 9.5 fL (7.4-10.4); Platelet Count 168 10^3/uL (130-400); Red Blood Cell Count 3.45 10^6/uL (4.70-6.10); Red Cell Dist. Width 12.4 % (11.5-14.5)
[2024-09-11 03:13] LABS: Blood Urea Nitrogen 18 mg/dl (9-20); Calcium 7.8 mg/dl (8.4-10.2); Carbon Dioxide 30 mmol/L (22-30); Chloride 95 mmol/L (98-107); Estimated Creatinine Clearance 92 ml/min; Glucose 130 mg/dl (70-99); Magnesium 2.2 mg/dl (1.6-2.3); Potassium 4.1 mmol/L (3.5-5.1); Sodium 134 mmol/L (135-145); eGFR > 60.00
--- NOTE | 2024-09-11 04:50 | W.PN.CT ---
Addendum entered and electronically signed by LEONARDA Rivera 09/11/24 11:52:
CDI Query Response
Fluid volume Overload
Atelectasis
Original Note:
Today's Communication / Plan
-
Plan:
-No major issues overnight. Hemodynamically and neurologically intact
-Off all drips
-Increased BB to 25 BID given increased BP
-Check weight and cont. diuresis, received total of 80 mg IV Lasix yesterday, diuresed total of 4050 mL
-Monitor hyponatremia, 134. Fluid restriction
-Cont. current meds (ASA, Amio, Lopressor, Crestor)
-Encourage use of IS
-F/U 2-view cxr
-Ambulate
-Home today
Assessment / Plan
-
Acute [place] type A Dissection s/p Aortic root replacement with biological Bentall 27 mm valved conduit, ASAEL exclusion with 35 mm clip, ascending aortic replacement with Dr. Davenport 09/08/24-> 09/09/24 POD #1/#2
Post SHAKIRA LVEF 65%, no RWMA, no AV insufficiency with mean gradient 8 mmHg
Ascending aortic aneurysm
Bicuspid AV
Severe AI
HTN
HLD
PVD
Pre-DM
Incomplete RBBB
Former EtOH abuse
Former smoker
Acute hemopericardium
Acute coagulopathy s/p 2 U platelets
Acute hypoxic respiratory failure
Acute blood loss anemia
Acute post op pain
Acute postop hyponatremia, 134
Discussed patient care with: Cardiology, Nursing, Respiratory Therapy, Pharmacy and Care Team
Subjective
Procedure
s/p Aortic root replacement with biological Bentall 27 mm valved conduit, ASAEL exclusion with 35 mm clip, ascending aortic replacement with Dr. Davenport 09/08/24-> 09/09/24
-
Date of Service: September 11, 2024
Pt c/o mild incisional pain, otherwise feels well. ambulating halls without difficulty
Objective Data
-
Lab Results
09/11/24 02:22
09/11/24 02:22
PT 17.2 Sec (11.4-14.6) H 09/09/24 00:54
INR 1.35 09/09/24 00:54
APTT 40.4 Sec (23.4-35.0) H 09/09/24 00:54
Vital Signs
Vital Signs
Temp Pulse Resp BP Pulse Ox
100.6 F H 80 18 133/70 90
09/11/24 04:00 09/11/24 04:01 09/11/24 04:00 09/11/24 04:01 09/11/24 04:00
CT Intake/Output/Weight
09/10/24 09/10/24 09/11/24
06:59 18:59 06:59
Intake Total 159.4 / 290.5 530 / 560 30 / 560
Output Total 1590 / 2340 3250 / 4100 850 / 4100
Balance -1430.6 / -2049.5 -2720 / -3540 -820 / -3540
SaO2: 92 (RA)
Physical Exam
-
General: Awake, Oriented and AOx3
Cardiovascular: Regular rate & rhythm, No Murmurs, No Rub and No Gallop
Respiratory: Decreased Breath Sounds (at bases, otherwise clear)
Sternum: Stable
Incision: Clean, Dry, Intact and Dressing Intact
Extremities: No Edema
Data Reviewed
-
Lab Results: Results Reviewed
Medications: Active Meds Reviewed
Chest X-Ray: Report Reviewed and Image Reviewed
ECG: Report Reviewed and Image Reviewed
[2024-09-11] MEDS: TYLENOL 1000 MG PO (06:30)
[2024-09-11] MEDS: KCL 40 MEQ PO (06:31)
[2024-09-11] MEDS: CALCIUM GLUCONATE 100 IV (06:31)
[2024-09-11] MEDS: LASIX 40 MG IV (06:31)
--- NOTE | 2024-09-11 07:31 | W.PN.CARDCBS ---
Today's Communication / Plan
-
Cont post op care
Impression / Plan
-
.
Impression:
s/p Aortic root replacement with biological Bentall 27 mm valved conduit ASAEL exclusion with 35 mm clip, ascending aortic replacement with Dr. Davenport 09/08/24-> 09/09/24 for [place] Type A dissection
Extubated 09/09 in a.m.
s/p hemopericardium at initiation of case
Incomplete right bundle branch block
History of bicuspid aortic valve with moderate aortic insufficiency by recent outpt echo
History of thoracic Ascending aortic aneurysm, 5.[address]
Hypertension/hyperlipidemia
Peripheral arterial disease, followed by vascular surgery
Former alcoholism, quit 2014
Former smoker, quit 2015
Multiple pulmonary nodules, largest 6 mm
Hyperlipidemia
Plan:
Cont post op care.
No arrhythmias
HR and bp remain stable.
Cont to monitor daily wts and Is and Os. Appears euvolemic
Cont Incentive spirotmetry.
HPI: 53-year-old male with history of bicuspid arctic valve, 5.2 cm ascending aortic aneurysm, presents with acute onset of chest pain, lightheadedness, nausea found to have type a aortic dissection with severe aortic valve insufficiency. Patient
underwent sternotomy with aortic root replacement with biological Bentall 09/09/2024. Acute chest pain onset around 9:30 PM 09/08
Progress Note - Personal Injury Attorney
Subjective
Date of Service: September 11, 2024
Pt seen and examined. No complaints. No chest pain or shortness of breath.
Objective
Labs:
09/11/24 02:22
09/11/24 02:22
Labs
Hgb 10.4 g/dL (13.0-18.0) L 09/11/24 02:22
Hct 30.4 % (39.0-52.0) L 09/11/24 02:22
Plt Count 168 10^3/uL (130-400) 09/11/24 02:22
PT 17.2 Sec (11.4-14.6) H 09/09/24 00:54
INR 1.35 09/09/24 00:54
APTT 40.4 Sec (23.4-35.0) H 09/09/24 00:54
Sodium 134 mmol/L (135-145) L 09/11/24 02:22
Potassium 4.1 mmol/L (3.5-5.1) 09/11/24 02:22
BUN 18 mg/dl (9-20) 09/11/24 02:22
Creatinine 1.0 mg/dL (0.7-1.3) 09/11/24 02:22
Glucose 130 mg/dl (70-99) H 09/11/24 02:22
Troponins
09/08/24 09/08/24
13:41 13:41
Troponin I 0.012 Cancelled
Vital Signs and I&O:
Vital Signs
Temp Pulse Resp BP Pulse Ox
100.6 F H 86 18 133/70 92
09/11/24 04:00 09/11/24 06:00 09/11/24 04:00 09/11/24 04:01 09/11/24 05:04
Vital Signs
Temp Pulse Resp BP Pulse Ox
100.6 F H 86 18 133/70 92
09/11/24 04:00 09/11/24 06:00 09/11/24 04:00 09/11/24 04:01 09/11/24 05:04
Intake & Output
09/09/24 09/10/24 09/11/24 09/12/24
06:59 06:59 06:59 06:59
Intake Total 494.3 / 521.6 290.5 / 290.5 560 / 560
Output Total 510 / 670 2340 / 2340 4100 / 4100 575 / 575
Balance -15.7 / -148.4 -2049.5 / -2048.5 -3540 / -3540 -575 / -575
Physical Exam
Physical Exam
General: No acute distress, AAOX3
Neck: Negative JVD
Heart: Regular, Negative S3 positive S1/S2, Negative S4, No murmur
Lungs: CTA b/l, negative wheezes/rales/rhonchi
Abd: Positive BS, NT/ND, neg rebound/rigidity/guarding
Ext: Negative cyanosis/clubbing/edema
Neuro: nonfocal
[2024-09-11 08:19] LABS: Glucose - Point of Care 151 mg/dl (70-99)
[2024-09-11] MEDS: SENOKOT-S 1 TABLET PO (08:38)
[2024-09-11] MEDS: PACERONE 200 MG PO ×2 (08:38→15:51)
[2024-09-11] MEDS: LOW STRENGTH ASPIRIN 81 MG PO (08:38)
[2024-09-11] MEDS: NEURONTIN 100 MG PO ×2 (08:39→15:51)
[2024-09-11] MEDS: NOVOLOG FLEXPEN-MODERATE RESISTANCE 1 UNITS SC (08:39)
[2024-09-11] MEDS: LOPRESSOR 25 MG PO (08:39)
[2024-09-11] MEDS: LIDOCAINE 4% PATCH 1 PATCH TOPICAL (08:39)
[2024-09-11] MEDS: PROTONIX 40 MG PO (08:39)
[2024-09-11] MEDS: CRESTOR 10 MG PO (08:39)
[2024-09-11] MEDS: MAGNESIUM OXIDE 500 MG PO (08:39)
[2024-09-11] MEDS: BACTROBAN 2% OINTMENT 1 APPLIC NASAL (08:40)
--- NOTE | 2024-09-11 09:34 | W.DCSUMMARY ---
Discharge Summary
Discharge Data
Date of Admission: 09/08/24
Date of Discharge: 09/11/24
-
Pending Results: No
Hospital Course
Primary care physician: Bruno Doyle
Outpatient outboard motor inspector: Akhil Collins
Inpatient consultants: [facility] Cardiology
Procedures:
1. Ascending aorta and root replacement with valved conduit, left atrial appendage clip, reimplantation of coronary ostia
Primary Diagnosis:
1. Acute [place] Type A dissection
Secondary Diagnoses:
1. Known bicuspid aortic valve with severe aortic valve insufficiency secondary to leaflet prolapse
2. Known Ascending aortic aneurysm measuring 5.7 cm
3. 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
4. Hypertension
5. Hyperlipidemia
6. Peripheral vascular disease
7. Prediabetic (A1C 6.1)
8. Former EtOH abuse
9. Former tobacco abuse
10. Acute hemopericardium
11. Acute coagulopathy s/p 2 U platelets
12. Acute hypoxic respiratory failure-expected
13. Acute surgical blood loss anemia
14 pre-diabetes (A1c 6.1)
HPI: 53 y/o male with PMH of HTN, HLD, a known Ao Aneurysm and Bicuspid aortic valve followed by Dr. Collins presented to [facility] 09/08/24 with complaints of sudden dull achy chest pain while eating dinner. A CTA of the chest
was performed and he was found to have a focal dissection along the greater curve at the STJ extending distally and proximally
Hospital course: Patient was taken emergently to the operating room and underwent an aortic root replacement�biological Bentall [#27 mm valved conduit], reimplantation of left and right coronary ostia, left atrial appendage exclusion [#35 mm clip],
ascending aortic replacement to the level of the proximal arch by Dr. Bubba Davenport. Patient returned to the CVICU at 0600 on 09/09, on Levophed, insulin, and Precedex. Patient was extubated at 06 30. Speech and language consultation reported no
difficulty with swallowing and patient progressed with diet. On postoperative day #1, Lopressor and prophylactic amiodarone were started. Wires and mediastinal chest tubes were discontinued. Patient was diuresed with 40 mg of IV Lasix twice daily
and diuresed 3 L of urine. Due to high insulin requirement, sliding scale insulin initiated and one dose Metformin given. On postoperative day #2, Lopressor dose was increased to 25 mg twice daily for elevated heart rate. Lasix 40 mg IV was given
and patient diuresed approximately 2L of urine. Weight decreased from 85 to 83kg (baseline 80kg). Heart rate remained in the 70s and sinus rhythm. Right IJ cordis was discontinued. A two-view chest x-ray reported no pneumothorax. Amiodarone was
not continued on discharge as patient experienced no postoperative atrial fibrillation. Hemoglobin A1c was 6.1, consistent with prediabetes, and patient was instructed to follow-up with PCP for further testing and treatment. Patient will require a
CTA of chest prior to his office visit on 10/08/24 and office staff notified of need for preauthorization. Prescription for CTA was given to patient. Patient deemed stable for discharge to home.
Home medication changes:
Aspirin dosage decreased to 81mg daily
Stop amlodipine as BP well controlled in the hospital
Discharge Plan
-
Patient Disposition: Home (Routine Discharge)
Discharge Diagnosis/Procedures: TYpe A dissection
Condition: Good
Diet: Diabetic, Carb Controlled
Activity: No strenuous activity
Driving Restrictions: Not until seen by your Dr
Bathing Restrictions: OK to Shower
Others Tests: Please get a CTA chest prior to your visit with Dr. Davenport
Other Services: Cardiac Rehab
Specialty Instructions: Weigh Daily- Call MD for wt gain/loss 3 lbs overnight/5 lbs in 1 week
Activity Restrictions/Additional Instructions:
Please call [facility] upon DC to home to schedule your first visit at [phone]
ACTIVITY:
-No strenuous activity: no heavy lifting, pushing, pulling anything over 15 pounds for one month
-continue to use stairs as tolerated
DRIVING RESTRICTIONS:
-No driving for one month or until approved by your surgeon
WOUND CARE:
-Shower daily. Use soap & water.
-No lotions, creams or powders on incision area.
DIET:
-continue a low fat/low cholesterol diet.
-IF you are diabetic, continue carb controlled diet.
CARDIAC REHAB:
-Please make appointment to start in 5-6 weeks with your local hospital program. (See Cardiac Rehabilitation Discharge Booklet).
SPECIALTY INSTRUCTIONS:
-Weigh yourself daily. Call your physician for any weight gain/loss of 3 lbs overnight or 5 lbs in one week.
-REPORT any clicking noise or uneven appearance of your sternum to your surgeon immediately.
-If you smoke, you are instructed to quit. The [place] smoking hotline phone number is [phone]
Referrals:
CT Transitional Care Nurse [Outside]
(
The Cardiothoracic Transitional Care Nurse will call you to set up a visit in 1-2 days.)
Govind Barnes MD [Active] -
(January [address] chest for pulmonary nodules
Follow-up with pulmonary February 2025)
Meek Doyle CRNP [Family Provider] -
Bruna Cook PA-C [Specified Professional Personl] - 10/22/24 1:20 pm
Bubba Davenport MD [Active] - 10/08/24 1:15 pm (post-op visit)
Prescriptions:
New
acetaminophen 325 mg Tablet
650 mg PO Q4HPRN PRN (Reason: mild pain,headache,temp >101F ) Qty: 0 0RF
gabapentin 100 mg Capsule
100 mg PO TID Qty: 30 0RF
oxycodone 5 mg Tablet
5 mg PO Q4HPRN PRN (Reason: severe pain) Qty: 20 0RF
metoprolol succinate [Toprol XL] 50 mg tablet extended release 24 hr
50 mg PO DAILY Qty: 30 1RF
Continued
aspirin 81 mg Tablet,Delayed Release (Dr/Ec)
81 mg PO DAILY
coenzyme Q10 [CoQ-10] 100 mg Capsule
100 mg PO DAILY
rosuvastatin 10 mg Tablet
10 mg PO DAILY
Discontinued
amlodipine 5 MG tablet
5 mg PO DAILY
aspirin 81 mg Tablet,Delayed Release (Dr/Ec)
162 mg PO DAILYPRN PRN (Reason: chest pain)
Discharge Orders:
Discharge Patient (As Directed); Ordered 09/11/24
Ordered By: Raquel Parada
Care Plan Goals
Care Plan Goals:
Problem: Readiness for enhanced knowledge related to diagnosis and treatment plan
Goal: Understand your diagnosis and treatment plan needs, including medications if applicable.
Instructions: Know your diagnosis, underlying causes and treatment plan options, including medications if applicable. Consult with your health care team to learn about your diagnosis and treatment plan, including medications if applicable.
Discharge Date and Time
Print Language: ARABIC
--- NOTE | 2024-09-11 09:48 | PTCARENOTE ---
assumed care of pt from previous shift RN, sinus rhythm on tele w HR 80's, bp 103/66, pox 95% on RA. + peripheral pulses, no edema. Lungs diminished, coughing and deep breathing encouraged. +bs, tolerating PO intake, voids spontaneously. Right IJ
cordis w KVO infusing, piv flush easily. MSI chevy, scabbed. pt denies pain. plan of care reviewed w the pt and questions encouraged.
--- NOTE | 2024-09-11 10:33 | PTCARENOTE ---
cordis removed without incident.
--- NOTE | 2024-09-11 10:44 | PTCARENOTE ---
pt sent for 2 view CXR
--- NOTE | 2024-09-11 11:33 | PN.CDI ---
CDI
- -
CDI:
Physician Documentation Request
Admit Date: 09/08/24 19:44
Dear Doctor Davenport/SYED
Please review the following and provide your response in the progress notes.
Clinical Indicators:
The diagnosis of Atelectasis was included in the signed CXR 09/09
Additional clinical indicators in the chart include:
Pt s/p surgery for Aortic Dissection/ Aortic Valve replacement on 09/09
Repeat CXR show improving atelectasis 09/09
Progress note 09/09, ' -on 2 L NC, IS use reinforced..'
Progress note 09/11, ' -Encourage use of IS....'
Please indicate in your progress notes if you are in agreement that the above diagnosis is valid for this patient:
____ -Atelectasis is a valid diagnosis (Please include it in your progress notes)
____ - Atelectasis is not a valid diagnosis for this patient
____ - Other ( please specify)
Use of terms such as suspected, likely, concern for, or probable are acceptable for a diagnosis that is being evaluated, monitored or treated as if it exists and can be coded in the inpatient setting, when documented at the time of discharge.
Thank you,
Hanna Copeland RN
CDI Specialist
[place] [facility]
Please use your independent medical judgment in providing your response.
--- NOTE | 2024-09-11 11:38 | PN.CDI ---
CDI
- -
CDI:
Physician Documentation Request
Admit Date: 09/08/24 19:44
Dear Doctor Davenport/ SYED,
Please review the following and provide your response in the progress notes.
Clinical Indicators:
Pt admitted with Abdominal aortic dissection/Aortic carolyn insufficiency s/p surgery on 09/09
Cardiology consult 09/09, ' Postoperative SHAKIRA with no wall motion abnormalities. Cardiac index 2.7 postprocedure...'
CT surgery progress note 09/11, ' -Check weight and cont. diuresis, received total of 80 mg IV Lasix yesterday, diuresed total of 4050 mL...Post SHAKIRA LVEF 65%, no RWMA, no AV insufficiency with mean gradient 8 mmHg....'
Per MAR IV Lasix 40 mg today 09/11
Please provide a diagnosis for the above findings/treatment of IV Lasix :
Acute Diastolic CHF
Fluid volume Overload
Other ( please specify)
Use of terms such as suspected, likely, concern for, or probable (associated with a specific diagnosis that is being evaluated, monitored, or treated as if it exists) are acceptable and can be coded in the inpatient setting, when documented at the
time of discharge.
Thank you,
Hanna Copeland RN
CDI Specialist
[place] [facility]
Please use your independent medical judgment in providing your response.
[2024-09-11] MEDS: FERRLECIT 110 MG IV (13:50)
[2024-09-11 14:00] LABS: Glucose - Point of Care 127 mg/dl (70-99)
[2024-09-11] MEDS: TYLENOL PO (14:04)
[2024-09-11] MEDS: NOVOLOG FLEXPEN-MODERATE RESISTANCE SC (14:04)
--- NOTE | 2024-09-11 15:32 | PTCARENOTE ---
post op dressings removed. pt assisted into shower.
--- NOTE | 2024-09-11 16:13 | PTCARENOTE ---
IV lines removed. Discharge instructions, follow up visits and medication list reviewed w the pt and his girlfriend. Questions encouraged.
--- NOTE | 2024-09-11 17:17 | PTCARENOTE ---
pt unable to sp[place] pick[place] prescriptions due to pharmacy being closed for holiday. Prescriptions sent to in pt pharmacy and daily supply given to pt's girlfriend.
== END 2024-09-11 17:24 | disposition home or self-care (01) | DRG 219 ==
LOC: CVICU 19:44
PROVIDERS: Anesthesiology; Clinical Nurse Specialist Acute Care; Emergency Medicine; Nurse Practitioner; ADMITTING PHYSICIAN Thoracic Surgery (Cardiothoracic Vascular Surgery); CONSULT PHYSICIAN Internal Medicine Cardiovascular Disease; CONSULT PHYSICIAN Internal Medicine Critical Care Medicine; EMERGENCY PHYSICIAN Emergency Medicine; FAMILY PHYSICIAN Nurse Practitioner Family
PROC: 02L70CK Occlusion of Left Atrial Appendage with Extraluminal Device, Open Approach (ICD-10-PCS; 2024-09-08)
PROC: 02RF08Z Replacement of Aortic Valve with Zooplastic Tissue, Open Approach (ICD-10-PCS; 2024-09-08)
PROC: B24BZZ4 Ultrasonography of Heart with Aorta, Transesophageal (ICD-10-PCS; 2024-09-08)
PROC: 5A1221Z Performance of Cardiac Output, Continuous (ICD-10-PCS; 2024-09-08)
PROC: 02RX0JZ Replacement of Thoracic Aorta, Ascending/Arch with Synthetic Substitute, Open Approach (ICD-10-PCS; 2024-09-08)
DX: I71.010 Dissection of ascending aorta (principal); J96.01 Acute respiratory failure with hypoxia; D68.8 Other specified coagulation defects; I31.2 Hemopericardium, not elsewhere classified; Q25.43 Congenital aneurysm of aorta; D62 Acute posthemorrhagic anemia; J98.11 Atelectasis; E87.1 Hypo-osmolality and hyponatremia; Q23.81 Bicuspid aortic valve; E78.00 Pure hypercholesterolemia, unspecified; E11.51 Type 2 diabetes mellitus with diabetic peripheral angiopathy without gangrene; I10 Essential (primary) hypertension; M19.90 Unspecified osteoarthritis, unspecified site; R91.8 Other nonspecific abnormal finding of lung field; E87.70 Fluid overload, unspecified; I45.10 Unspecified right bundle-branch block; Z79.82 Long term (current) use of aspirin; Z79.899 Other long term (current) drug therapy; Z87.891 Personal history of nicotine dependence
CPT/HCPCS: 88305; 88311; 71045; 71046; 71275; 74174; 80048; 80053; 80076; 81003; 81015; 82330; 82565; 82805; 82810; 82947; 82962; 83036; 83735; 84132; 84302; 84484; 84520; 85014; 85018; 85025; 85027; 85049; 85384; 85610; 85730; 86850; 86900; 86901; 86920; 92610; 93005; 93312; 93320; 93325; 96365; 96375; 99291; J2916; P9045; P9073; Q9967

== ENCOUNTER → 2024-10-01 11:19 | Outpatient (REF) | payer BC, SELFPAY | LOC: RAD 11:19 | PROVIDERS: ATTENDING PHYSICIAN Nurse Practitioner; FAMILY PHYSICIAN Nurse Practitioner Family; REFERRING PHYSICIAN Thoracic Surgery (Cardiothoracic Vascular Surgery) | DX: I77.810 Thoracic aortic ectasia (principal); Z95.828 Presence of other vascular implants and grafts | CPT/HCPCS: 71275; 93005; Q9967 ==

== ENCOUNTER → 2024-10-02 15:17 | Outpatient (REF) | payer BC, SELFPAY | LOC: RAD 15:17 | PROVIDERS: ATTENDING PHYSICIAN Nurse Practitioner Family | DX: R42 Dizziness and giddiness (principal) | CPT/HCPCS: 70450 ==

== ENCOUNTER → 2024-10-08 14:14 | Outpatient (REF) | payer BC, SELFPAY | LOC: RAD 14:14 | PROVIDERS: ATTENDING PHYSICIAN Nurse Practitioner Family | DX: R42 Dizziness and giddiness (principal) | CPT/HCPCS: 93880 ==

== ENCOUNTER → 2025-01-30 08:13 | Outpatient (REF) | payer BC, SELFPAY | LOC: HWRCS 08:13 | PROVIDERS: ATTENDING PHYSICIAN Nuclear Medicine Nuclear Cardiology; FAMILY PHYSICIAN Nurse Practitioner Family | DX: Z95.828 Presence of other vascular implants and grafts (principal); Q23.1 Congenital insufficiency of aortic valve | CPT/HCPCS: 93306 ==

== ENCOUNTER → 2025-02-08 14:26 | Outpatient (REF) | payer BC, SELFPAY | LOC: HWRAD 14:26 | PROVIDERS: ATTENDING PHYSICIAN Internal Medicine Critical Care Medicine; FAMILY PHYSICIAN Nurse Practitioner Family | DX: R91.8 Other nonspecific abnormal finding of lung field (principal) | CPT/HCPCS: 71250 ==

== ENCOUNTER → 2025-04-01 07:53 | Outpatient (REF) | payer BC, SELFPAY | LOC: RAD 07:53 | PROVIDERS: ATTENDING PHYSICIAN Thoracic Surgery (Cardiothoracic Vascular Surgery); FAMILY PHYSICIAN Nurse Practitioner Family | DX: Z95.828 Presence of other vascular implants and grafts (principal) | CPT/HCPCS: 71275; Q9967 ==

== ENCOUNTER → 2025-05-20 09:31 | Outpatient (REF) | payer BC, SELFPAY | LOC: PAVMRI 09:31 | PROVIDERS: ATTENDING PHYSICIAN Psychiatry & Neurology Neurology; FAMILY PHYSICIAN Nurse Practitioner Family | DX: Z86.73 Personal history of transient ischemic attack (TIA), and cerebral infarction without residual deficits (principal) | CPT/HCPCS: 70544; 70547; 70553; A9575 ==

== ENCOUNTER → 2025-08-29 14:43 | Outpatient (REF) | payer BC, SELFPAY | LOC: HWRAD 14:43 | PROVIDERS: ATTENDING PHYSICIAN Nurse Practitioner Family; REFERRING PHYSICIAN Urology | DX: R39.9 Unspecified symptoms and signs involving the genitourinary system (principal) | CPT/HCPCS: 76770 ==